=== PATIENT | female | born 1950 | race Two or more races ===

== ENCOUNTER 2024-06-20 09:33 | Emergency (ER) | payer MEDICARE, MEDICAID, SELFPAY ==
--- NOTE | 2024-06-20 | XR_ITS ---
Examinations: MRI Brain without intravenous contrast. MRA brain without intravenous contrast. MRA carotids without intravenous contrast 3-D vascular reconstructions Date and time of exam: June 20, 2024 1207 hrs. Comparison April 30, 2024 Indications: Stroke alert today, onset dysarthria, ataxia, a fascial focal neurologic deficits Technique: Multiple axial and sagittal images of the brain have been obtained MRA brain carotid images without contrast obtained, including 3-D postprocessing, vascular maximum intensity projection images Findings: Sellaturcica is not enlarged. The optic chiasm and infundibular stalk are not remarkable. Prepontine and interpeduncular cisterns are not enlarged. No localized enlargement of the medulla or christopher. Fourth ventricle and cerebellar tonsils normal in position. Subacute hemorrhage is not seen. Fourth ventricle is midline. Mass in the cerebellopontine angle region is not evident. 7th and 8th nerve complexes exhibits symmetry. Globes are symmetrical with no retro-orbital mass. Increased white matter signal prominent Diffusion-weighted images demonstrate no focus of restricted diffusion Mass-effect upon the ventricular system is not identified. MRA carotid images no significant carotid stenoses. MRA brain images no cerebral large vessel occlusions or thrombus Impression: Negative for acute hemorrhage mass effect or midline shift No acute infarct Prominent chronic microvascular white matter change No cerebral large vessel arterial occlusions or thrombus
--- NOTE | 2024-06-20 09:35 | EKG_ITS ---
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
--- NOTE | 2024-06-20 09:35 | XR_ITS ---
Examination: CTA carotids with intravenous contrast CTA brain, head with intravenous contrast. 2-D sagittal, coronal reconstructions. 3-D reconstructions. Exam date and time: June 20, 2024 0947 hrs. Indications: Stroke alert, onset aphasia today focal neurologic deficit CTDI: vol (mGy) 20.1 DLP: (mGycm) 433 Technique: Multiple CTA axial brain, head carotid images post intravenous contrast injection 75 cc, Isovue-370. 2-D sagittal, coronal reconstructions. 3-D reconstructions, 3-D post processing including vascular maximum intensity projection images. Low dose protocols were performed. One or more of the following dose reduction techniques were used; automated exposure control, adjustment of the mA and/or KV according to patient size, use of iterative reconstruction technique. Findings: No significant common carotid carotid bifurcation or internal carotid artery stenoses Dominant left vertebral artery with no critical stenoses 3-D cerebral images are limited Intracranial vertebral arteries basilar artery posterior cerebral branches fill no large vessel occlusions Juxtasellar supraclinoid internal carotid arteries demonstrate mild calcifications, no occlusions M1 segments middle cerebral arteries trifurcation vessels anterior cerebral vessels fill with no thrombus or large vessel occlusions Impression: No significant neck arterial stenoses No cerebral large vessel arterial occlusions or thrombus
--- NOTE | 2024-06-20 09:35 | XR_ITS ---
Examination: CT brain head without contrast. 2-D sagittal coronal reconstructions Date and time of exam:June 20, 2024 0940 hrs. Comparison April 29, 2024 Indications: Stroke alert, onset aphasia today focal neurologic deficits CTDI: vol (mGy):49.1 DLP: (mGycm):967 Technique: Multiple CT axial sections of the brain have been obtained, 5 mm slice thickness. Contrast has not been administered. 2-D sagittal, coronal reconstructions have been obtained Low dose protocols were performed. One or more of the following dose reduction techniques were used; automated exposure control, adjustment of the mA and/or KV according to patient size, use of iterative reconstruction technique. Findings: No significant ventricular enlargement. Intra-axial or extra-axial hemorrhage density is not seen. No mass effect or midline shift Basal cisterns are not remarkable. Fourth ventricle is midline. Cranial vault intact. Impression: Negative for acute hemorrhage, mass effect or midline shift
[2024-06-20 09:48] LABS: Basophils # (Auto) 0.1 Thou/mm3 (0.0-0.2); Basophils % (Auto) 1 % (0-2.5); Eosinophils # (Auto) 0.1 Thou/mm3 (0.0-0.5); Eosinophils % (Auto) 1 % (0-10); Hematocrit 33.9 % (36.0-46.0); Hemoglobin 11.6 g/dL (12.0-16.0); Immature Granulocytes % (Auto) 0 % (0-0); Immature Granulocytes Auto 0.01 Thou/mm3 (0.00-0.00); Lymphocytes # (Auto) 2.9 Thou/mm3 (1.0-4.8); Lymphocytes % (Auto) 46 % (10-50); Mean Corpuscular HGB Conc 34.2 g/dl (31.0-37.0); Mean Corpuscular Hemoglobin 31.8 pg (25.0-35.0); Mean Corpuscular Volume 93 fL (80-100); Monocytes # (Auto) 0.6 Thou/mm3 (0.0-0.8); Monocytes % (Auto) 10 % (0-12); Neutrophils # (Auto) 2.7 Thou/mm3 (1.8-7.7); Neutrophils % (Auto) 42 % (37-80); Nucleated Red Blood Cell % 0 /100 WBC (0); Platelet Count 236 Thou/mm3 (140-440); RDW Standard Deviation 41.4 fL (36.4-46.3); Red Blood Count 3.65 Miln/mm3 (4.00-5.20); White Blood Count 6.3 Thou/mm3 (3.6-11.0)
[2024-06-20 09:59] LABS: Partial Thromboplastin Time 29.1 Seconds (22.0-36.0); Prothrombin Time 11.1 Seconds (9.0-12.2)
--- NOTE | 2024-06-20 10:00 | PC.NURSE ---
Patient present to ED via ambulance with stroke like symptoms, unable to speak. Per family patient was sitting on couch and then noted was unable to speak appropiately prior to arrival to ED. Patient is alert, and following commands upon arrival, noted slight aphasia. Patient was take to CT.
[2024-06-20 10:04] LABS: B-Type Natriuretic Peptide 55 pg/mL (0-100)
[2024-06-20 10:05] VITALS: PULSE 72
[2024-06-20 10:14] VITALS: RESP 96; BMI 33.1
[2024-06-20 10:16] LABS: Alanine Aminotransferase 8 U/L (10-49); Albumin, Serum 4.2 gm/dL (3.4-4.8); Albumin/Globulin Ratio 1.3 (1.2-2.2); Alkaline Phosphatase 122 U/L (46-116); Anion Gap 7 (7-16); Aspartate Amino Transferase 15 U/L (0-34); BUN/Creatinine Ratio 12 Ratio (12-20); Bilirubin,Total 0.3 mg/dL (0.3-1.2); Blood Urea Nitrogen 11 mg/dL (9-23); Calcium 9.2 mg/dL (8.3-10.6); Calcium (Corrected) 9.2 mg/dL (8.5-10.1); Chloride 99 mMol/L (98-107); Creatinine (Component) 0.9 mg/dL (0.6-1.3); Globulin 3.3 gm/dL (2.3-3.5); Glucose 98 mg/dL (74-106); Osmolality,Calculated 262 (275-295); Potassium 3.8 mMol/L (3.4-5.1); Sodium 131 mMol/L (136-145); Total Protein 7.5 gm/dL (5.7-8.2); Troponin I < 0.020 ng/mL (0.0-0.045); eGFR > 60 See Note
[2024-06-20 10:18] VITALS: BP 155/91; BP 160/89; PULSE 66; RESP 13; TEMP 37.1; O2SAT 97
[2024-06-20 10:19] VITALS: BP 146/79; PULSE 71; RESP 22; O2SAT 97
--- NOTE | 2024-06-20 10:26 | PC.NURSE ---
1015 Teleneuro, Dr Alfred Tan assessing patient, per MD no interventions required.
--- NOTE | 2024-06-20 10:29 | PD.TNEURO ---
Tele Neuro Consultation Consultation Date 06/20/24 Most Recent Vital Signs Last Vital Signs Temp 98.7 F 06/20/24 10:18 Pulse 71 06/20/24 10:19 Resp 22 H 06/20/24 10:19 BP 146/79 H 06/20/24 10:19 Pulse Ox 97 06/20/24 10:19 O2 Del Method Room Air 06/20/24 10:19 Laboratory-Coagulation Panel PT 11.1 Seconds (9.0-12.2) 06/20/24 09:37 INR 1.0 (0.9-1.3) 06/20/24 09:37 APTT 29.1 Seconds (22.0-36.0) 06/20/24 09:37 Consultation Narrative [facility] Tele[facility]urology Consult [facility] Patient Name:???Rhona Canseco Date of :???1950 Identification Number:??? Date of Service:???06/20/2024 09:34:05 Diagnosis:?G45.9 - Transient cerebral ischemic attack, unspecified ?R47.9 - Transient Speech Difficulties Impression: ?Patient is a 73 yo female with pmhx HTN, seizures who presented with speech changes, AMS which are improving. No family is present at bedside at the moment. NIH currently 0. Unclear etiology at this time. Consider stroke/TIA vs seizure with post-ictal state vs alternative etiologies. R/o Metabolic or toxic derangements. CT/CTA without acute abn or obvious proximal LVO to my eye, pending radiology review. Advised ED provider to contact this provider with questions regarding imaging studies. Not a candidate for IV thrombolytic or EVT given NIH 0, resolving symptoms, no disabling features on exam, NIH<6, LVO not currently suspected. ? ?Further work-up and eval per ED. Infectious and metabolic labs recommended. Can consider MRI Brain w/o contrast if not back to baseline. Start ASA, statin for now. SBP 120-140 mmHg. PT/OT/ST evaluation. Need to confirm AED regimen and compliance. Consider increasing Keppra to 750 mg BID. Seizure precautions. Other management and dispo per ED. ? ?Discussed with patient, staff at bedside, ED provider who agree with plan of care. Call with any questions or concerns. Our recommendations are outlined below. Recommendations: ? Neuro Checks ? Bedside Swallow Eval ? DVT Prophylaxis ? IV Fluids, Normal Saline ? Head of Bed 30 Degrees ? Euglycemia and Avoid Hyperthermia (PRN Acetaminophen) ? Initiate or continue Aspirin 81 MG daily Sign Out: ? Discussed with Emergency Department Provider Advanced Imaging:CTA Head and Neck Completed. LVO:No Patient in not a candidate for ADAM Metrics: Last Known Well: 06/20/2024 09:00:00 Dispatch Time: 06/20/2024 09:57:11 Arrival Time: 06/20/2024 09:33:00 Initial Response Time: 06/20/2024 10:00:22Symptoms: Speech changes. Initial patient interaction: 06/20/2024 10:01:44 NIHSS Assessment Completed: 06/20/2024 10:04:26Patient is not a candidate for Thrombolytic. Thrombolytic Medical Decision: 06/20/2024 10:12:35Patient was not deemed candidate for Thrombolytic because of following reasons: Stroke severity too mild (non-disabling) . I personally Reviewed the CT Head and it Showed no acute abn to my eye, pending radiology review. Primary Provider Notified of Diagnostic Impression and Management Plan on: 06/20/2024 10:24:22 History of Present Illness:Patient is a 73 year old Female. Patient was brought by EMS for symptoms of Speech changes. Patient is a 73 yo female with pmhx HTN, seizures who presented with speech changes, AMS which are improving. No family is present at bedside at the moment. Patient is on Aptiom 800 mg daily and KEppra 500 mg BID. Patient admitted in April with similar presentation, CT/ MRI was non acute at that time. It was thought to be related to seizure/post-ictal state due to being out of her AEDs. ? Past Medical History: ?Hypertension ?Seizures ?There is no history of Diabetes Mellitus ?There is no history of Hyperlipidemia ?There is no history of Atrial Fibrillation ?There is no history of Coronary Artery Disease ?There is no history of Stroke Medications: No Anticoagulant use? No Antiplatelet use Reviewed EMR for current medications Allergies:? Reviewed Social History: Smoking: No Alcohol Use: No Drug Use: No Family History: There is no family history of premature cerebrovascular disease pertinent to this consultation ROS : 14 Points Review of Systems was performed and was negative except mentioned in HPI. Past Surgical History: There Is No Surgical History Contributory To Today?s Visit ? Examination: BP(161/116),?Pulse(86),?Blood Glucose(101) 1A: Level of Consciousness - Alert; keenly responsive?+ 0 1B: Ask Month and Age - Both Questions Right?+ 0 1C: Blink Eyes & Squeeze Hands - Performs Both Tasks?+ 0 2: Test Horizontal Extraocular Movements - Normal?+ 0 3: Test Visual Atkinson - No Visual Loss?+ 0 4: Test Facial Palsy (Use Grimace if Obtunded) - Normal symmetry?+ 0 5A: Test Left Arm Motor Drift - No Drift for 10 Seconds?+ 0 5B: Test Right Arm Motor Drift - No Drift for 10 Seconds?+ 0 6A: Test Left Leg Motor Drift - No Drift for 5 Seconds?+ 0 6B: Test Right Leg Motor Drift - No Drift for 5 Seconds?+ 0 7: Test Limb Ataxia (FNF/Heel-Escudero) - No Ataxia?+ 0 8: Test Sensation - Normal; No sensory loss?+ 0 9: Test Language/Aphasia - Normal; No aphasia?+ 0 10: Test Dysarthria - Normal?+ 0 11: Test Extinction/Inattention - No abnormality?+ 0 NIHSS Score:?0 NIHSS Free Text :?hypophonic speech but appropriate and no aphasia. Pre-Morbid Modified Leo Scale:0 Points = No symptoms at all Spoke with :?ED provider This consult was conducted in real time using interactive audio and video technology. Patient was informed of the technology being used for this visit and agreed to proceed. Patient located in hospital and provider located at home/office setting. Patient is being evaluated for possible acute neurologic impairment and high probability of imminent or life-threatening deterioration. I spent total of 35 minutes providing care to this patient, including time for face to face visit via telemedicine, review of medical records, imaging studies and discussion of findings with providers, the patient and/or family. Dr Alfred Tan [facility] For Inpatient follow-up with [facility] physician please call [facility] at . As we are not an outpatient service for any post hospital discharge needs please contact the hospital for assistance. If you have any questions for the [facility] physicians or need to reconsult for clinical or diagnostic changes please contact us via [facility] at .
[2024-06-20] MEDS: Aspirin 325 MG TABLET PO (12:39)
[2024-06-20 12:48] VITALS: BP 175/95; PULSE 65; RESP 19; TEMP 36.3; O2SAT 95
--- NOTE | 2024-06-20 14:24 | EDNOTE_ITS ---
Neuro Symptoms Deficit-RME/HPI General Chief Complaint: Neuro Symptoms/Deficit Stated Complaint: STROKE LIKE SYMPTOMS Time Seen by Provider: 06/20/24 09:35 Arrival date/time: 06/20/24 09:33 RME / HPI RME / HPI Narrative: DR. MUSE MAIN ED EVALUATION: 73 year old female presents to the Emergency Department [facility] with complaint of aphasia, sudden onset prior to arrival. PMHx: Seizure disorder and recent CVA 04/2024. Social Hx: No tobacco, alcohol, or substance use. Related Data Home Medications ?Medication ?Instructions ?Recorded ?Confirmed paroxetine HCl 30 mg tablet (Paxil) 30 mg PO DAILY ##0 09/23/07 05/01/24 citalopram 20 mg tablet 20 mg PO QDAY 05/01/24 05/01/24 gabapentin 400 mg capsule 400 mg PO BID 05/01/24 05/01/24 pravastatin 20 mg tablet 20 mg PO QDAY 05/01/24 05/01/24 Previous Rx's ?Medication ?Instructions ?Recorded cyclobenzaprine 5 mg tablet 10 mg (2 x 5 mg) PO TID PRN muscle 03/24/20 spasm #30 tabs levetiracetam 500 mg tablet 500 mg PO BID epilepsy #60 tabs 03/14/24 (Keppra) eslicarbazepine 800 mg tablet 800 mg PO QDAY #30 tabs 05/01/24 (Aptiom) Allergies Allergy/AdvReac Type Severity Reaction Status Date / Time No Known Allergies Allergy Verified 03/29/24 18:39 Review of Systems Review of Systems Systems Reviewed: All systems reviewed, normal except as documented Past Medical History Past Medical History NEUROLOGIC: Positive Neurological Disorders, Seizures and Epilepsy CARDIAC: Positive Hypertension; Negative Cardiac Disorders, Congestive Heart Failure or Edema RESPIRATORY: Positive Respiratory Disorders; Negative Chronic Obstructive Pulmonary Disease (COPD) or Asthma GASTROINTESTINAL: Negative Fowler's Esophagus GENITOURINARY: Negative Genitourinary Disorders or Renal Disease REPRODUCTIVE: Positive Breast Cancer (r.breast) and Previous Pregnancies MUSCULOSKELETAL: Positive Musculoskeletal Disorders and Arthritis ENDOCRINE: Negative Diabetes Mellitus Type 1 or Diabetes Mellitus Type 2 HEMATOLOGIC: Negative Blood Disorders or Sickle Cell Disease OTHER HISTORY: Positive Chicken Pox, Measles, Mumps, Cancer and Breast Cancer (r.breast); Negative Hospitalization, Autoimmune Disease, Down Syndrome, Developmental Delay, Shingles or Falls Surgical History SURGICAL: Positive Tonsillectomy and Mastectomy (r.breast) Social History SMOKING STATUS: Never smoker SUBSTANCE USE: does not use ALCOHOL: Never ED Exam Narrative Physical exam: GENERAL APPEARANCE: alert and oriented x 4, well-developed, well-nourished, no acute distress VITALS: All vitals were reviewed and the pulse ox is 96% on room air, which is normal according to my interpretation. HEENT: Normocephalic, atraumatic; pupils equal, round, reactive to light; EOMI; mucous membranes pink, moist; oropharynx clear NECK: Supple LUNGS: CTABL; no wheezes, no rales, no rhonchi HEART: Regular rate, regular rhythm; normal S1, S2; no murmurs ABDOMEN: non distended; normal BS; soft, no tenderness, no guarding, no rebound; no masses, no organomegaly, no hernia BACK: no CVA tenderness EXTREMITIES: atraumatic; no edema NEUROLOGIC: awake; alert and oriented x4; cranial nerves II-XII grossly intact; no focal sensory or motor deficits PSYCHIATRIC: appropriate mood and affect SKIN: warm, dry, normal color; no rashes Course Quality Measures none Orders Category Date Time Status Bedside Blood Glucose NOW Care 06/20/24 09:35 Completed Clothing Cutter NOW Care 06/20/24 09:35 Completed Continuous Pulse Oximetry NOW Care 06/20/24 09:35 Completed EKG (ED ONLY) *Do not use* NOW Care 06/20/24 09:35 Completed In and Out Catheter NEEDED Care 06/20/24 09:35 Completed Insert IV NOW Care 06/20/24 09:35 Completed MRI Screening NOW Care 06/20/24 10:31 Completed NIH Stroke Scale now Care 06/20/24 09:35 Completed NPO NOW Care 06/20/24 09:35 Completed Nurse Swallow Screen x1 Care 06/20/24 09:35 Completed Consult to Neurology / Tele-Neurology Routine Cons 06/20/24 09:[address] angio stroke protocol Stat Exams 06/20/24 09:[address] stroke protocol Stat Exams 06/20/24 09:35 Completed EKG (ED Only) Stat Exams 06/20/24 09:35 Draft MR stroke protocol Stat Exams 06/20/24 Completed B-Type Natriuretic Peptide Stat Lab 06/20/24 09:37 Completed CBC Stat Lab 06/20/24 09:37 Completed Comprehensive Metabolic Panel Stat Lab 06/20/24 09:37 Completed Magnesium Stat Lab 06/20/24 09:37 Completed Partial Thromboplastin Time Stat Lab 06/20/24 09:37 Completed Prothrombin Time with INR Stat Lab 06/20/24 09:37 Completed Troponin I Stat Lab 06/20/24 09:37 Completed Aspirin Med 06/20/24 11:49 Discontinued 325 mg PO X1 ONE Oxygen Delivery NOW RT 06/20/24 09:35 Completed Reevaluation(s) Reevaluation #1: Patient remains clinically stable throughout the emergency department visit. Re-assessment at the time of disposition demonstrates that the patient is in no acute distress. We reviewed all the results, analysis, and treatment plans. Patient is amenable to discharge. Strict return precautions were outlined. Patient was discharged in stable condition. Time: 13:30 Vital Signs Vital signs: Vital Signs Pulse Rate 72 06/20/24 10:05 Neuro Symptoms / Deficit MDM Narrative MDM Narrative:: IDora am scribing for and in the presence of Dr. Muse. Patient data External records reviewed:: [facility] previous records (Reviewed last admission discharge dated 05/04/24, patient admitted for the following: CVA (cerebral vascular accident).) and EMS form Clinical information provided by:: patient and EMS Social determinants that could affect healthcare access:: none Patient has the following chronic illnesses:: Seizure disorder and recent CVA 04/2024. How is presenting disease/condition affected by chronic disease/condition?: exacerbated by Evaluation data The following diagnostics were reviewed and interpreted by me:: lab results, radiology exam(s) and EKG tracing(s) (sinus rhythm, rate 66, QTc 425, no change compared to EKG 04/30/24) Lab and/or radiology exams considered but not ordered:: none Interpretation Summary: Procedure(s): CT angio stroke protocol Accession Number(s): [id number] cc: Kranthi Haas MD; Hanny Muse MD~ Examination: CTA carotids with intravenous contrast CTA brain, head with intravenous contrast. 2-D sagittal, coronal reconstructions. 3-D reconstructions. Exam date and time: June 20, 2024 0947 hrs. Indications: Stroke alert, onset aphasia today focal neurologic deficit CTDI: vol (mGy) 20.1 DLP: (mGycm) 433 Technique: Multiple CTA axial brain, head carotid images post intravenous contrast injection 75 cc, Isovue-370. 2-D sagittal, coronal reconstructions. 3-D reconstructions, 3-D post processing including vascular maximum intensity projection images. Low dose protocols were performed. One or more of the following dose reduction techniques were used; automated exposure control, adjustment of the mA and/or KV according to patient size, use of iterative reconstruction technique. Findings: No significant common carotid carotid bifurcation or internal carotid artery stenoses Dominant left vertebral artery with no critical stenoses 3-D cerebral images are limited Intracranial vertebral arteries basilar artery posterior cerebral branches fill no large vessel occlusions Juxtasellar supraclinoid internal carotid arteries demonstrate mild calcifications, no occlusions M1 segments middle cerebral arteries trifurcation vessels anterior cerebral vessels fill with no thrombus or large vessel occlusions Impression: No significant neck arterial stenoses No cerebral large vessel arterial occlusions or thrombus Dictated By: Kranthi Haas MD Procedure(s): CT stroke protocol Accession Number(s): [id number] cc: Kranthi Haas MD; Hanny Muse MD~ Examination: CT brain head without contrast. 2-D sagittal coronal reconstructions Date and time of exam:June 20, 2024 0940 hrs. Comparison April 29, 2024 Indications: Stroke alert, onset aphasia today focal neurologic deficits CTDI: vol (mGy):49.1 DLP: (mGycm):967 Technique: Multiple CT axial sections of the brain have been obtained, 5 mm slice thickness. Contrast has not been administered. 2-D sagittal, coronal reconstructions have been obtained Low dose protocols were performed. One or more of the following dose reduction techniques were used; automated exposure control, adjustment of the mA and/or KV according to patient size, use of iterative reconstruction technique. Findings: No significant ventricular enlargement. Intra-axial or extra-axial hemorrhage density is not seen. No mass effect or midline shift Basal cisterns are not remarkable. Fourth ventricle is midline. Cranial vault intact. Impression: Negative for acute hemorrhage, mass effect or midline shift Dictated By: Kranthi Haas MD ---- Procedure(s): MR stroke protocol Accession Number(s): [id number] cc: James Adamson MD; Kranthi Haas MD; Hanny Muse MD~ Examinations: MRI Brain without intravenous contrast. MRA brain without intravenous contrast. MRA carotids without intravenous contrast 3-D vascular reconstructions Date and time of exam: June 20, 2024 1207 hrs. Comparison April 30, 2024 Indications: Stroke alert today, onset dysarthria, ataxia, a fascial focal neurologic deficits Technique: Multiple axial and sagittal images of the brain have been obtained MRA brain carotid images without contrast obtained, including 3-D postprocessing, vascular maximum intensity projection images Findings: Sellaturcica is not enlarged. The optic chiasm and infundibular stalk are not remarkable. Prepontine and interpeduncular cisterns are not enlarged. No localized enlargement of the medulla or christopher. Fourth ventricle and cerebellar tonsils normal in position. Subacute hemorrhage is not seen. Fourth ventricle is midline. Mass in the cerebellopontine angle region is not evident. 7th and 8th nerve complexes exhibits symmetry. Globes are symmetrical with no retro-orbital mass. Increased white matter signal prominent Diffusion-weighted images demonstrate no focus of restricted diffusion Mass-effect upon the ventricular system is not identified. MRA carotid images no significant carotid stenoses. MRA brain images no cerebral large vessel occlusions or thrombus Impression: Negative for acute hemorrhage mass effect or midline shift No acute infarct Prominent chronic microvascular white matter change No cerebral large vessel arterial occlusions or thrombus Dictated By: Kranthi Haas MD Medications / Prescriptions Medications or Prescriptions considered but not ordered:: none Medication administrations:: Medication Administration History Discontinued Medications Aspirin (Aspirin 325 Mg Tablet) 325 mg PO X1 ONE Stop: 06/20/24 11:50 Last Admin: 06/20/24 12:39 Dose: 325 mg Documented By: AA see above Consultations Consultation(s) initiated? (list below): No Diagnosis Neuro Differential Diagnosis: subarachnoid hemorrhage, peripheral neuropathy, transient cerebral ischemia and other (Dysarthria) Most likely diagnosis given after review of the tests above:: Dysarthria Admission Indicated Admission indicated?: not indicated Admission Request Was there a request for admission?: No Disposition Plan Disposition Plan: Discharge Discharge Attestation Discharge Attestation: The patient and all family members were given an opportunity to ask questions and understood the discharge instructions. Discharge instructions specifically effects, indications for sooner follow up or return to the emergency department, and the expected course of current diagnosis. Patient condition: Stable Discharge Plan Plan Patient Disposition: HOME (Self Care) Prescriptions/Referrals Prescriptions/Med Rec: No Action paroxetine HCl [Paxil] 30 MG tablet 30 mg PO DAILY Qty: 0 Patient Comments: TAKE 2 TABLETS BY MOUTH DAILY cyclobenzaprine 5 mg tablet 10 mg PO TID PRN (Reason: muscle spasm) Qty: 30 0RF levetiracetam [Keppra] 500 MG tablet 500 mg PO BID Qty: 60 0RF Patient Comments: FOR SEIZURES gabapentin 400 mg Capsule 400 mg PO BID citalopram 20 mg Tablet 20 mg PO QDAY pravastatin 20 mg Tablet 20 mg PO QDAY Aptiom 800 mg tablet 800 mg PO QDAY Qty: 30 0RF Referrals: James Adamson MD [Primary Care Provider] - In 1 week Problem List Clinical Impression: Dysarthria Patient/Caregiver Discharge Instructions Education Materials: What Is Dysarthria Print Language: Uzbek Stand Alone Forms: Ayleen Award Info., Patient Portal Info Letter
[2024-06-20 14:36] VITALS: BP 160/83; PULSE 60; RESP 15; O2SAT 96
== END 2024-06-20 14:36 | disposition home or self-care (01) ==
PROVIDERS: Emergency Provider Emergency Medicine; PCP Family Medicine
DX: R47.1 Dysarthria and anarthria (principal); I10 Essential (primary) hypertension
CPT/HCPCS: 36415; 70450; 70496; 70498; 70544; 80053; 80307; 81001; 83735; 83880; 84484; 85025; 85610; 85730; 87086; 93005; 99285; A4649; Q9967; A9270

== ENCOUNTER 2024-09-22 01:05 | Emergency (ER) | payer MEDICARE, MEDICAID, SELFPAY ==
[2024-09-22 01:14] VITALS: PULSE 116; RESP 16; O2SAT 98
[2024-09-22 01:21] VITALS: BP 182/87; PULSE 90; RESP 17; TEMP 37.1; O2SAT 98
--- NOTE | 2024-09-22 01:51 | EKG_ITS ---
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
[2024-09-22 02:14] LABS: Basophils # (Auto) 0.1 Thou/mm3 (0.0-0.2); Basophils % (Auto) 1 % (0-2.5); Eosinophils % (Auto) 0 % (0-10); Hemoglobin 10.8 g/dL (12.0-16.0); Immature Granulocytes % (Auto) 0 % (0-0); Immature Granulocytes Auto 0.03 Thou/mm3 (0.00-0.00); Lymphocytes # (Auto) 1.7 Thou/mm3 (1.0-4.8); Lymphocytes % (Auto) 21 % (10-50); Mean Corpuscular HGB Conc 34.8 g/dl (31.0-37.0); Mean Corpuscular Volume 92 fL (80-100); Monocytes # (Auto) 0.6 Thou/mm3 (0.0-0.8); Monocytes % (Auto) 7 % (0-12); Neutrophils # (Auto) 5.8 Thou/mm3 (1.8-7.7); Neutrophils % (Auto) 71 % (37-80); Nucleated Red Blood Cell % 0 /100 WBC (0); Platelet Count 219 Thou/mm3 (140-440); RDW Standard Deviation 45.9 fL (36.4-46.3); Red Blood Count 3.38 Miln/mm3 (4.00-5.20); White Blood Count 8.1 Thou/mm3 (3.6-11.0)
[2024-09-22 02:16] LABS: Collection Type, Urine Catheter
[2024-09-22 02:26] LABS: Bacteria,Urine 2+; Bilirubin,Urine Negative (Negative); Blood,Urine Trace (Negative); Clarity,Urine Clear (Clear/Hazy); Color,Urine Yellow (Lt Yel-Yel); Glucose, Urine Negative (Negative); Ketones,Urine Negative (Negative); Leukocyte Esterase,Urine Negative (Negative); Nitrite,Urine Positive (Negative); PH,Urine 5.5 (5.0-7.0); Protein,Urine Trace (Neg - Trace); RBC,Urine 2 /hpf (0-3); Specific Gravity,Urine 1.026 (1.001-1.035); Squamous Epithelial Cell,Urine 3 /hpf (0-5); Urobilinogen,Urine Negative mg/dL (0.0-1.0); WBC,Urine 2 /hpf (0-5)
[2024-09-22 02:30] LABS: Culture Indicated,Urine Yes
[2024-09-22 02:42] LABS: Alanine Aminotransferase 9 U/L (10-49); Albumin/Globulin Ratio 1.3 (1.2-2.2); Alkaline Phosphatase 132 U/L (46-116); Anion Gap 9 (7-16); Aspartate Amino Transferase 16 U/L (0-34); BUN/Creatinine Ratio 13 Ratio (12-20); Bilirubin,Total 0.2 mg/dL (0.3-1.2); Blood Urea Nitrogen 13 mg/dL (9-23); Calcium 9.1 mg/dL (8.3-10.6); Calcium (Corrected) 9.1 mg/dL (8.5-10.1); Carbon Dioxide 25.3 mMol/L (20.0-31.0); Chloride 102 mMol/L (98-107); Glucose 127 mg/dL (74-106); Osmolality,Calculated 274 (275-295); Potassium 3.6 mMol/L (3.4-5.1); Sodium 136 mMol/L (136-145); Troponin I < 0.020 ng/mL (0.0-0.045); eGFR 59 See Note
--- NOTE | 2024-09-22 04:15 | EDNOTE_ITS ---
ED Seizures RME/HPI General Chief Complaint: Seizure Stated Complaint: SEIZURES Time Seen by Provider: 09/22/24 04:14 Arrival date/time: 09/22/24 01:05 RME / HPI RME / HPI Narrative: Dr. Cole?s Main ED Evaluation: 74yo female with a history of epilepsy, HTN BIBA from home presents to the ED for a seizure. Patient states her called 911 after she had a seizure. She states this is the first seizure she's had in 2 months. She is taking her medications. She denies any cough, fever, chills, UTI symptoms or any other associated symptoms. No known allergies. Related Data Home Medications ?Medication ?Instructions ?Recorded ?Confirmed paroxetine HCl 30 mg tablet (Paxil) 30 mg PO DAILY ##0 09/23/07 05/01/24 citalopram 20 mg tablet 20 mg PO QDAY 05/01/2405/01 gabapentin 400 mg capsule 400 mg PO BID 05/01/2405/01 pravastatin 20 mg tablet 20 mg PO QDAY 05/01/2405/01 Previous Rx's ?Medication ?Instructions ?Recorded cyclobenzaprine 5 mg tablet 10 mg (2 x 5 mg) PO TID [place] N muscle 03/24/20 spasm #30 tabs levetiracetam 500 mg tablet 500 mg PO BID epilepsy #60 tabs 03/14/24 (Keppra) eslicarbazepine 800 mg tablet 800 mg PO QDAY #30 tabs 05/01/24 (Aptiom) Allergies Allergy/AdvReac Type Severity Reaction Status Date / Time No Known Allergies Allergy Verified 03/29/24 18:39 Review of Systems Review of Systems Systems Reviewed: All systems reviewed, normal except as documented Past Medical History Past Medical History NEUROLOGIC: Positive Neurological Disorders, Seizures and Epilepsy CARDIAC: Positive Hypertension; Negative Cardiac Disorders, Congestive Heart Failure or Edema RESPIRATORY: Negative Chronic Obstructive Pulmonary Disease (COPD) or Asthma GASTROINTESTINAL: Negative Fowler's Esophagus GENITOURINARY: Negative Genitourinary Disorders or Renal Disease REPRODUCTIVE: Positive Breast Cancer and Previous Pregnancies MUSCULOSKELETAL: Positive Musculoskeletal Disorders and Arthritis ENDOCRINE: Negative Diabetes Mellitus Type 1 or Diabetes Mellitus Type 2 HEMATOLOGIC: Negative Blood Disorders or Sickle Cell Disease OTHER HISTORY: Positive Chicken Pox, Measles, Mumps, Cancer and Breast Cancer; Negative Hospitalization, Autoimmune Disease, Down Syndrome, Developmental Delay, Shingles or Falls Surgical History SURGICAL: Positive Tonsillectomy and Mastectomy Social History SMOKING STATUS: Never smoker SUBSTANCE USE: does not use ED Exam Narrative Physical exam: GENERAL APPEARANCE: alert and oriented x 4, well-developed, well-nourished, no acute distress VITALS: All vitals were reviewed and the pulse ox is 97% on room air, which is normal according to my interpretation. HEENT: Normocephalic, atraumatic; pupils equal, round, reactive to light; EOMI; mucous membranes pink, moist; oropharynx clear NECK: Supple LUNGS: CTABL; no wheezes, no rales, no rhonchi HEART: Regular rate, regular rhythm; normal S1, S2; no murmurs ABDOMEN: non distended; normal BS; soft, no tenderness, no guarding, no rebound; no masses, no organomegaly, no hernia BACK: no CVA tenderness EXTREMITIES: atraumatic; no edema NEUROLOGIC: awake; alert and oriented x4; cranial nerves II-XII grossly intact; no focal sensory or motor deficits PSYCHIATRIC: appropriate mood and affect SKIN: warm, dry, normal color; no rashes Course Quality Measures none Orders Category Date Time Status Creative Consultant STAT Care 09/22/24 04:17 Active Continuous Pulse Oximetry ONCE Care 09/22/24 04:17 Active EKG (ED ONLY) *Do not use* NOW Care 09/22/24 01:52 Completed IV [Insert IV] NOW Care 09/22/24 04:37 Active EKG (ED Only) Stat Exams 09/22/24 01:51 Draft CBC Stat Lab 09/22/24 02:07 Completed CMP [Comprehensive Metabolic Panel] Stat Lab 09/22/24 02:07 Completed Troponin I Stat Lab 09/22/24 02:07 Completed Urinalysis, C/S if Indicated Stat Lab 09/22/24 01:57 Completed Urine Culture Stat Lab 09/22/24 01:57 Received LORazepam [Ativan Inj] Med 09/22/24 04:25 Discontinued 1 mg IVP X1 ONE Sodium Chloride 0.9% 1000 ml [Ns] 1,000 ml Med 09/22/24 04:17 Discontinued IV 999 mls/hr Vital Signs Vital signs: Vital Signs Temperature 98.7 F 09/22/24 01:21 Pulse Rate 90 09/22/24 01:21 Respiratory Rate 17 09/22/24 01:21 Blood Pressure 182/87 H 09/22/24 01:21 Pulse Oximetry (%) 98 09/22/24 01:21 Oxygen Delivery Method Nasal Cannula 09/22/24 01:21 Oxygen Flow Rate 2 09/22/24 01:21 Seizure MDM Narrative MDM Narrative:: Scribe Attestation: 09/22/24 - Jahaira Villeda am scribing for and in the presence of Dr. Cole. Patient has remained stable here in the ED without any further seizures. Patient is stable to be discharged home. Patient data External records reviewed:: [facility] previous records (Per chart review, patient was admitted here on 04/29/24 for CVA.) Clinical information provided by:: patient Social determinants that could affect healthcare access:: none Patient has the following chronic illnesses:: epilepsy, HTN How is presenting disease/condition affected by chronic disease/condition?: caused by Evaluation data The following diagnostics were reviewed and interpreted by me:: lab results and EKG tracing(s) Lab and/or radiology exams considered but not ordered:: none Interpretation Summary: CBC is normal, CMP is normal, Troponin is normal, UA is positive for a UTI, according to my interpretation. EKG done at 0155, NSR, rate of 85, normal axis, no ectopy, QRS: 88, QTc: 408, no acute ischemia, according to my interpretation. Medications / Prescriptions Medications or Prescriptions considered but not ordered:: none Medication administrations:: Medication Administration History Discontinued Medications Sodium Chloride (Ns) 1,000 mls @ 999 mls/hr IV .Q1H1M ONE Stop: 09/22/24 05:17 Last Infusion: 09/22/24 05:53 Dose: Infused Documented By: Admin: 09/22/24 05:00 Dose: 999 mls/hr Documented By: CVVu Lorazepam (Lorazepam 2 Mg/Ml Vial) 1 mg IVP X1 ONE Stop: 09/22/24 04:26 Last Admin: 09/22/24 05:54 Dose: Not Given Documented By: CVL Non-Admin Reason: Change of Condition see above Consultations Consultation(s) initiated? (list below): No Diagnosis Seizure Differential Diagnosis: other (breakthrough seizure, medication noncompliance, infectious process) Most likely diagnosis given after review of the tests above:: see clinical impression below Admission Indicated Admission indicated?: not indicated Admission Request Was there a request for admission?: No Disposition Plan Disposition Plan: Discharge Discharge Attestation Discharge Attestation: The patient and all family members were given an opportunity to ask questions and understood the discharge instructions. Discharge instructions specifically effects, indications for sooner follow up or return to the emergency department, and the expected course of current diagnosis. Patient condition: Stable Discharge Plan Plan Patient Disposition: HOME (Self Care) Disposition Comment: Stable for discharge home Patient condition on transfer: Stable Prescriptions/Referrals Prescriptions/Med Rec: No Action paroxetine HCl [Paxil] 30 MG tablet 30 mg PO DAILY Qty: 0 Patient Comments: TAKE 2 TABLETS BY MOUTH DAILY cyclobenzaprine 5 mg tablet 10 mg PO TID PRN (Reason: muscle spasm) Qty: 30 0RF levetiracetam [Keppra] 500 MG tablet 500 mg PO BID Qty: 60 0RF Patient Comments: FOR SEIZURES gabapentin 400 mg Capsule 400 mg PO BID citalopram 20 mg Tablet 20 mg PO QDAY pravastatin 20 mg Tablet 20 mg PO QDAY Aptiom 800 mg tablet 800 mg PO QDAY Qty: 30 0RF Referrals: Dion Olguin MD [Physician] - In 1 week Problem List Clinical Impression: Breakthrough seizure Patient/Caregiver Discharge Instructions Discharge Activity: activity as tolerated Education Materials: ED Seizure, Recurrent (Adult) Additional Instructions: Please return to the emergency department if you have any worsening or any further medical problems and we will help you. Otherwise you should follow-up with a primary care doctor within the next several days I have given you the contact information for our neurologist on-call, Dr. Olguin. Please call her office or your primary neurologist's office and make follow-up appointment. Print Language: Setswana Stand Alone Forms: Ayleen Award Info., Patient Portal Info Letter
[2024-09-22 04:38] VITALS: PULSE 73
[2024-09-22] MEDS: SODIUM CHLORIDE 0.9% 1000 ML 1,000 ML 999 ML IV (05:00)
[2024-09-22 05:55] VITALS: BP 158/70; PULSE 79; RESP 14; O2SAT 98
[2024-09-22 06:31] VITALS: BP 166/87; PULSE 72; RESP 16; O2SAT 97
[2024-09-22 06:48] VITALS: BP 166/87; PULSE 72; RESP 16; O2SAT 97
== END 2024-09-22 07:13 | disposition home or self-care (01) ==
PROVIDERS: Emergency Provider Emergency Medicine; PCP Family Medicine
DX: G40.909 Epilepsy, unspecified, not intractable, without status epilepticus (principal); I10 Essential (primary) hypertension
CPT/HCPCS: 36415; 80053; 81001; 82550; 83605; 84484; 85025; 87077; 87086; 87186; 96360; 99284; J7030

== ENCOUNTER 2024-09-26 06:22 | Emergency (ER) | payer MEDICARE, MEDICAID, SELFPAY ==
--- NOTE | 2024-09-26 06:25 | EKG_ITS ---
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
--- NOTE | 2024-09-26 06:25 | EDNOTE_ITS ---
ED Seizures RME/HPI General Chief Complaint: Seizure Stated Complaint: SEIZURE Time Seen by Provider: 09/26/24 06:25 Arrival date/time: 09/26/24 06:22 RME / HPI RME / HPI Narrative: DR. MUSE MAIN ED EVALUATION: 74 year old female with past medical history significant for seizures presents to the Emergency Department [facility] with complaint of a seizure lasting 2 minutes while on bed, family witnessed the seizure. No fall or injury. Per EMS, patient is still postictal and last vitals were a BP of 140/88, sinus tachycardia on the monitor, and O2 saturation 98% on room air. Blood glucose was 125. Related Data Home Medications ?Medication ?Instructions ?Recorded ?Confirmed paroxetine HCl 30 mg tablet (Paxil) 30 mg PO DAILY ##0 09/23/07 05/01/24 citalopram 20 mg tablet 20 mg PO QDAY 05/01/2405/01 gabapentin 400 mg capsule 400 mg PO BID 05/01/2405/01 pravastatin 20 mg tablet 20 mg PO QDAY 05/01/2405/01 Previous Rx's ?Medication ?Instructions ?Recorded cyclobenzaprine 5 mg tablet 10 mg (2 x 5 mg) PO TID [place] N muscle 03/24/20 spasm #30 tabs levetiracetam 500 mg tablet 500 mg PO BID epilepsy #60 tabs 03/14/24 (Keppra) eslicarbazepine 800 mg tablet 800 mg PO QDAY #30 tabs 05/01/24 (Aptiom) Allergies Allergy/AdvReac Type Severity Reaction Status Date / Time No Known Allergies Allergy Verified 09/26/24 06:27 Review of Systems Review of Systems Systems Reviewed: All systems reviewed, normal except as documented Past Medical History Past Medical History NEUROLOGIC: Positive Neurological Disorders, Seizures and Epilepsy CARDIAC: Positive Hypertension; Negative Congestive Heart Failure or Edema REPRODUCTIVE: Positive Breast Cancer and Previous Pregnancies MUSCULOSKELETAL: Positive Musculoskeletal Disorders and Arthritis OTHER HISTORY: Positive Chicken Pox, Measles, Mumps, Cancer and Breast Cancer Surgical History SURGICAL: Positive Tonsillectomy and Mastectomy Social History SMOKING STATUS: Never smoker SUBSTANCE USE: does not use ED Exam Narrative Physical exam: GENERAL APPEARANCE: patient is postictal, well-developed, well-nourished, seems in no acute distress VITALS: All vitals were reviewed and the pulse ox is 98% on room air, which is normal according to my interpretation. HEENT: Normocephalic, atraumatic; pupils equal, round, reactive to light; EOMI; mucous membranes pink, moist; oropharynx clear NECK: Supple LUNGS: CTABL; no wheezes, no rales, no rhonchi HEART: Regular rate, regular rhythm; normal S1, S2; no murmurs ABDOMEN: non distended; normal BS; soft, no tenderness, no guarding, no rebound; no masses, no organomegaly, no hernia BACK: no CVA tenderness EXTREMITIES: atraumatic; no edema NEUROLOGIC: awake; alert and oriented x4; cranial nerves II-XII grossly intact; no focal sensory or motor deficits PSYCHIATRIC: appropriate mood and affect SKIN: warm, dry, normal color; no rashes Course Quality Measures none Orders Category Date Time Status Bedside COVID-19 Antigen Test NOW Care 09/26/24 06:36 Completed Bedside Influenza A&B Antigen Test NOW Care 09/26/24 06:36 Completed Furniture Assembler NOW Care 09/26/24 06:25 Completed EKG (ED ONLY) *Do not use* NOW Care 09/26/24 06:25 Completed IV [Insert IV] NOW Care 09/26/24 06:36 Completed EKG (ED Only) Stat Exams 09/26/24 06:25 Draft B-Type Natriuretic Peptide Stat Lab 09/26/24 06:45 Completed CBC Stat Lab 09/26/24 06:45 Completed Comprehensive Metabolic Panel Stat Lab 09/26/24 06:45 Completed Lipase Stat Lab 09/26/24 06:45 Completed Magnesium Stat Lab 09/26/24 06:45 Completed Troponin I Stat Lab 09/26/24 06:45 Completed UA, C/S IF [Urinalysis, C/S if Indicated] Stat Lab 09/26/24 08:00 Completed Urine Culture Stat Lab 09/26/24 08:00 Received levETIRAcetam INJ [Keppra Inj] Med 09/26/24 06:26 Discontinued 1,000 mg IVP X1 ONE Vital Signs Vital signs: Vital Signs Temperature 99.5 F 09/26/24 06:27 Pulse Rate 109 H 09/26/24 06:27 Respiratory Rate 18 09/26/24 06:27 Blood Pressure 194/100 H 09/26/24 06:27 Pulse Oximetry (%) 98 09/26/24 06:27 Oxygen Delivery Method Room Air 09/26/24 06:27 Seizure MDM Narrative MDM Narrative:: I, Dora Almaraz, am scribing for and in the presence of Dr. Muse. Patient data External records reviewed:: EMS form Clinical information provided by:: patient and EMS Social determinants that could affect healthcare access:: none Patient has the following chronic illnesses:: Seizures How is presenting disease/condition affected by chronic disease/condition?: caused by Evaluation data The following diagnostics were reviewed and interpreted by me:: lab results and EKG tracing(s) Lab and/or radiology exams considered but not ordered:: none Interpretation Summary: EKG#1: EKG at 0644 hours. Interpreted by me: sinus rhythm, rate 91, no acute ischemic changes Medications / Prescriptions Medications or Prescriptions considered but not ordered:: none Medication administrations:: Medication Administration History Discontinued Medications Levetiracetam (Levetiracetam Inj 100 Mg/Ml Vial 5ml) 1,000 mg IVP X1 ONE Stop: 09/26/24 06:27 Last Admin: 09/26/24 06:43 Dose: 1,000 mg Documented By: CVL see above Consultations Consultation(s) initiated? (list below): No Diagnosis Seizure Differential Diagnosis: intractable seizure disorder, focal seizure, generalized seizure, epileptic seizure and status epilepticus Most likely diagnosis given after review of the tests above:: Recurrent seizures Asymptomatic bacteriuria Admission Indicated Admission indicated?: not indicated Admission Request Was there a request for admission?: No Disposition Plan Disposition Plan: Discharge Discharge Attestation Discharge Attestation: The patient and all family members were given an opportunity to ask questions and understood the discharge instructions. Discharge instructions specifically effects, indications for sooner follow up or return to the emergency department, and the expected course of current diagnosis. Patient condition: Stable Discharge Plan Plan Patient Disposition: HOME (Self Care) Prescriptions/Referrals Prescriptions/Med Rec: No Action paroxetine HCl [Paxil] 30 MG tablet 30 mg PO DAILY Qty: 0 Patient Comments: TAKE 2 TABLETS BY MOUTH DAILY cyclobenzaprine 5 mg tablet 10 mg PO TID PRN (Reason: muscle spasm) Qty: 30 0RF levetiracetam [Keppra] 500 MG tablet 500 mg PO BID Qty: 60 0RF Patient Comments: FOR SEIZURES gabapentin 400 mg Capsule 400 mg PO BID citalopram 20 mg Tablet 20 mg PO QDAY pravastatin 20 mg Tablet 20 mg PO QDAY Aptiom 800 mg tablet 800 mg PO QDAY Qty: 30 0RF Problem List Clinical Impression: Recurrent seizures, Asymptomatic bacteriuria Patient/Caregiver Discharge Instructions Education Materials: ED Seizure, Recurrent (Adult) Print Language: Pashto Stand Alone Forms: Ayleen Award Info., Patient Portal Info Letter
[2024-09-26 06:27] VITALS: BP 194/100; PULSE 109; RESP 18; TEMP 37.5; O2SAT 98
[2024-09-26 06:32] VITALS: PULSE 103
[2024-09-26 06:35] VITALS: BP 188/102
[2024-09-26] MEDS: levETIRAcetam INJ 100 MG/ML VIAL 5ML 1000 MG IVP (06:43)
[2024-09-26 06:50] VITALS: BMI 30.6
[2024-09-26 06:53] VITALS: BP 173/100; PULSE 87; RESP 12; O2SAT 98
[2024-09-26 07:14] LABS: Basophils # (Auto) 0.1 Thou/mm3 (0.0-0.2); Basophils % (Auto) 1 % (0-2.5); Eosinophils # (Auto) 0.1 Thou/mm3 (0.0-0.5); Eosinophils % (Auto) 1 % (0-10); Hematocrit 34.6 % (36.0-46.0); Hemoglobin 11.8 g/dL (12.0-16.0); Immature Granulocytes % (Auto) 1 % (0-0); Immature Granulocytes Auto 0.04 Thou/mm3 (0.00-0.00); Lymphocytes # (Auto) 2.9 Thou/mm3 (1.0-4.8); Lymphocytes % (Auto) 40 % (10-50); Mean Corpuscular HGB Conc 34.1 g/dl (31.0-37.0); Mean Corpuscular Hemoglobin 31.9 pg (25.0-35.0); Mean Corpuscular Volume 94 fL (80-100); Monocytes # (Auto) 0.5 Thou/mm3 (0.0-0.8); Monocytes % (Auto) 7 % (0-12); Neutrophils # (Auto) 3.7 Thou/mm3 (1.8-7.7); Neutrophils % (Auto) 51 % (37-80); Nucleated Red Blood Cell % 0 /100 WBC (0); Platelet Count 284 Thou/mm3 (140-440); RDW Standard Deviation 44.3 fL (36.4-46.3); White Blood Count 7.2 Thou/mm3 (3.6-11.0)
[2024-09-26 07:42] LABS: B-Type Natriuretic Peptide 48 pg/mL (0-100)
[2024-09-26 07:45] LABS: Alanine Aminotransferase 8 U/L (10-49); Albumin, Serum 4.2 gm/dL (3.4-4.8); Albumin/Globulin Ratio 1.3 (1.2-2.2); Alkaline Phosphatase 115 U/L (46-116); Anion Gap 11 (7-16); Aspartate Amino Transferase 16 U/L (0-34); BUN/Creatinine Ratio 10 Ratio (12-20); Bilirubin,Total 0.3 mg/dL (0.3-1.2); Blood Urea Nitrogen 10 mg/dL (9-23); Calcium 9.4 mg/dL (8.3-10.6); Calcium (Corrected) 9.4 mg/dL (8.5-10.1); Carbon Dioxide 23.6 mMol/L (20.0-31.0); Chloride 101 mMol/L (98-107); Estimated Creatinine Clearance 53.9 mL/min (>60); Globulin 3.3 gm/dL (2.3-3.5); Glucose 120 mg/dL (74-106); Lipase 39 U/L (12-53); Osmolality,Calculated 271 (275-295); Potassium 3.2 mMol/L (3.4-5.1); Sodium 136 mMol/L (136-145); Total Protein 7.5 gm/dL (5.7-8.2); Troponin I < 0.020 ng/mL (0.0-0.045); eGFR 59 See Note
[2024-09-26 08:03] LABS: Collection Type, Urine Clean Catch
[2024-09-26 08:07] VITALS: BP 156/81; PULSE 74; RESP 16; TEMP 36.7; O2SAT 96
[2024-09-26 08:15] LABS: Bacteria,Urine 3+; Bilirubin,Urine Negative (Negative); Blood,Urine Trace (Negative); Color,Urine Yellow (Lt Yel-Yel); Glucose, Urine Negative (Negative); Ketones,Urine Negative (Negative); Leukocyte Esterase,Urine Negative (Negative); Nitrite,Urine Negative (Negative); PH,Urine 5.5 (5.0-7.0); Protein,Urine Trace (Neg - Trace); RBC,Urine 1 /hpf (0-3); Specific Gravity,Urine 1.016 (1.001-1.035); Squamous Epithelial Cell,Urine < 1 /hpf (0-5); Urobilinogen,Urine Negative mg/dL (0.0-1.0); WBC,Urine 6 /hpf (0-5)
[2024-09-26 08:17] LABS: Clarity,Urine Hazy (Clear/Hazy); Culture Indicated,Urine Yes
== END 2024-09-26 09:45 | disposition home or self-care (01) ==
PROVIDERS: Emergency Provider Emergency Medicine; PCP Family Medicine
DX: G40.909 Epilepsy, unspecified, not intractable, without status epilepticus (principal); R82.71 Bacteriuria; Z79.899 Other long term (current) drug therapy
CPT/HCPCS: 36415; 80053; 81001; 83690; 83735; 83880; 84484; 85025; 87077; 87086; 87186; 87400; 87811; 93005; 96374; 99284; J1953

== ENCOUNTER 2024-12-23 09:40 | Emergency (ER) | payer MEDICARE, MEDICAID, SELFPAY ==
[2024-12-23 09:42] VITALS: PULSE 130; RESP 20; O2SAT 99
[2024-12-23 09:47] VITALS: BP 181/79; PULSE 114; RESP 18; TEMP 36.9; O2SAT 96
[2024-12-23] MEDS: levETIRAcetam INJ 100 MG/ML VIAL 5ML 1000 MG IVP (10:15)
--- NOTE | 2024-12-23 10:15 | EDNOTE_ITS ---
ED Seizures RME/HPI General Chief Complaint: Seizure Stated Complaint: SEIZURE Time Seen by Provider: 12/23/24 09:51 Arrival date/time: 12/23/24 09:40 Limitations: no limitations RME / HPI RME / HPI Narrative: 74 year old female with history of seizures managed with Keppra presents to the ED BIBA from home for evaluation of seizure today. Per medics report, seizure was witnessed by family and no injuries or trauma reported. While in the ED, patient has no complaints. Denies fevers chills, chest pain, cough, abdominal pain, n/v/d, or urinary symptoms. Related Data Home Medications ?Medication ?Instructions ?Recorded ?Confirmed paroxetine HCl 30 mg tablet (Paxil) 30 mg PO DAILY ##0 09/23/07 05/01/24 citalopram 20 mg tablet 20 mg PO QDAY 05/01/2405/01 gabapentin 400 mg capsule 400 mg PO BID 05/01/2405/01 pravastatin 20 mg tablet 20 mg PO QDAY 05/01/2405/01 Previous Rx's ?Medication ?Instructions ?Recorded cyclobenzaprine 5 mg tablet 10 mg (2 x 5 mg) PO TID [place] N muscle 03/24/20 spasm #30 tabs levetiracetam 500 mg tablet 500 mg PO BID epilepsy #60 tabs 03/14/24 (Keppra) eslicarbazepine 800 mg tablet 800 mg PO QDAY #30 tabs 05/01/24 (Aptiom) Allergies Allergy/AdvReac Type Severity Reaction Status Date / Time No Known Allergies Allergy Verified 09/26/24 06:27 Review of Systems Review of Systems Systems Reviewed: All systems reviewed, normal except as documented Past Medical History Past Medical History NEUROLOGIC: Positive Neurological Disorders, Seizures and Epilepsy CARDIAC: Positive Hypertension REPRODUCTIVE: Positive Breast Cancer and Previous Pregnancies MUSCULOSKELETAL: Positive Musculoskeletal Disorders and Arthritis OTHER HISTORY: Positive Chicken Pox, Measles, Mumps, Cancer and Breast Cancer Surgical History SURGICAL: Positive Tonsillectomy and Mastectomy Social History SMOKING STATUS: Never smoker SUBSTANCE USE: does not use ED Exam General Limitations: Present no limitations General appearance: Present alert and in no apparent distress Head Head exam: Present atraumatic, normocephalic and normal inspection Eye Eye exam: Present normal appearance, PERRL and EOMI ENT ENT exam: Present normal exam, normal oropharynx and mucous membranes moist Neck Neck exam: Present normal inspection, full ROM and trachea midline Chest Chest inspection: Present normal inspection and symmetric chest wall rise Respiratory Respiratory exam: Present normal lung sounds bilaterally Cardiovascular Cardiovascular exam: Present regular rate, normal rhythm and normal heart sounds Abdominal Exam Abdominal exam: Present soft and normal bowel sounds Extremities Exam Extremities exam: Present normal inspection and full ROM Back Exam Back exam: Present normal inspection and full ROM Neurological Exam Neurological exam: Present alert, oriented X3 and CN II-XII intact Psychiatric Psychiatric exam: Present normal affect and normal mood Skin Skin exam: Present warm, dry, intact and normal color Course Quality Measures none Orders Category Date Time Status CBC Stat Lab 12/23/24 10:10 Completed CMP [Comprehensive Metabolic Panel] Stat Lab 12/23/24 10:10 Completed Potassium Chloride [K-Dur] Med 12/23/24 10:55 Discontinued 40 meq PO X1 ONE levETIRAcetam INJ [Keppra Inj] Med 12/23/24 10:08 Discontinued 1,000 mg IVP X1 ONE Vital Signs Vital signs: Vital Signs Temperature 98.4 F 12/23/24 09:47 Pulse Rate 114 H 12/23/24 09:47 Respiratory Rate 18 12/23/24 09:47 Blood Pressure 181/79 H 12/23/24 09:47 Pulse Oximetry (%) 96 12/23/24 09:47 Oxygen Delivery Method Room Air 12/23/24 09:47 Pulse ox is 96% on room air which is adequate. Seizure MDM Narrative MDM Narrative:: Giuliana Villeda am scribing for and in the presence of Dr. Cormier. 74 year old female with history of seizures, managed with Keppra, who presents to the ED for breakthrough seizure today. According to the medics, the seizure was witnessed by the family, and there were no injuries or trauma reported. In the ED, the patient is asymptomatic. Labs including CBC and CMP are unremarkable, with no evidence of infection, electrolyte abnormalities, or other metabolic disturbances. Patient has remained stable through ED course. Will DC home. Patient data External records reviewed:: [facility] previous records (I reviewed ED visit on 09/26/2024 ) and EMS form Clinical information provided by:: patient and EMS Social determinants that could affect healthcare access:: none Patient has the following chronic illnesses:: Seizures How is presenting disease/condition affected by chronic disease/condition?: exacerbated by Evaluation data The following diagnostics were reviewed and interpreted by me:: lab results Lab and/or radiology exams considered but not ordered:: None Interpretation Summary: As noted above Medications / Prescriptions Medications or Prescriptions considered but not ordered:: None Medication administrations:: Medication Administration History Discontinued Medications Levetiracetam (Levetiracetam Inj 100 Mg/Ml Vial 5ml) 1,000 mg IVP X1 ONE Stop: 12/23/24 10:09 Last Admin: 12/23/24 10:15 Dose: 1,000 mg Documented By: VG Potassium Chloride (Potassium Chloride 20 Meq Tabcr) 40 meq PO X1 ONE Stop: 12/23/24 10:56 See above Consultations Consultation(s) initiated? (list below): No Diagnosis Seizure Differential Diagnosis: intractable seizure disorder, generalized seizure, epileptic seizure and status epilepticus Most likely diagnosis given after review of the tests above:: Generalized seizure Admission Indicated Admission indicated?: not indicated Admission Request Was there a request for admission?: No Disposition Plan Disposition Plan: Discharge Discharge Attestation Discharge Attestation: The patient and all family members were given an opportunity to ask questions and understood the discharge instructions. Discharge instructions specifically effects, indications for sooner follow up or return to the emergency department, and the expected course of current diagnosis. Patient condition: Stable Discharge Plan Plan Patient Disposition: HOME (Self Care) Patient condition on transfer: Stable Prescriptions/Referrals Prescriptions/Med Rec: No Action paroxetine HCl [Paxil] 30 MG tablet 30 mg PO DAILY Qty: 0 Patient Comments: TAKE 2 TABLETS BY MOUTH DAILY cyclobenzaprine 5 mg tablet 10 mg PO TID PRN (Reason: muscle spasm) Qty: 30 0RF levetiracetam [Keppra] 500 MG tablet 500 mg PO BID Qty: 60 0RF Patient Comments: FOR SEIZURES gabapentin 400 mg Capsule 400 mg PO BID citalopram 20 mg Tablet 20 mg PO QDAY pravastatin 20 mg Tablet 20 mg PO QDAY Aptiom 800 mg tablet 800 mg PO QDAY Qty: 30 0RF Problem List Clinical Impression: Generalized seizure Patient/Caregiver Discharge Instructions Discharge Activity: activity as tolerated Education Materials: ED Seizure, Recurrent (Adult) Additional Instructions: Follow-up with your primary care doctor in 3 to 5 days for recheck. You can return to the emergency department sooner if symptoms worsen or if you notice any new, concerning issues. Print Language: Ukrainian Stand Alone Forms: Ayleen Award Info., Patient Portal Info Letter
[2024-12-23 10:29] LABS: Basophils # (Auto) 0.1 Thou/mm3 (0.0-0.2); Basophils % (Auto) 1 % (0-2.5); Eosinophils # (Auto) 0.0 Thou/mm3 (0.0-0.5); Eosinophils % (Auto) 1 % (0-10); Hematocrit 35.0 % (36.0-46.0); Hemoglobin 12.5 g/dL (12.0-16.0); Immature Granulocytes Auto 0.03 Thou/mm3 (0.00-0.00); Lymphocytes # (Auto) 3.5 Thou/mm3 (1.0-4.8); Lymphocytes % (Auto) 43 % (10-50); Mean Corpuscular HGB Conc 35.7 g/dl (31.0-37.0); Mean Corpuscular Hemoglobin 31.8 pg (25.0-35.0); Mean Corpuscular Volume 89 fL (80-100); Monocytes # (Auto) 0.7 Thou/mm3 (0.0-0.8); Monocytes % (Auto) 8 % (0-12); Neutrophils # (Auto) 3.8 Thou/mm3 (1.8-7.7); Neutrophils % (Auto) 47 % (37-80); Nucleated Red Blood Cell # 0.00 Thou/mm3 (0.00-0.00); Nucleated Red Blood Cell % 0 /100 WBC (0); Platelet Count 270 Thou/mm3 (140-440); RDW Standard Deviation 40.4 fL (36.4-46.3); Red Blood Count 3.93 Miln/mm3 (4.00-5.20); White Blood Count 8.1 Thou/mm3 (3.6-11.0)
[2024-12-23 10:42] LABS: Alanine Aminotransferase 11 U/L (10-49); Albumin, Serum 4.3 gm/dL (3.4-4.8); Albumin/Globulin Ratio 1.3 (1.2-2.2); Alkaline Phosphatase 105 U/L (46-116); Anion Gap 16 (7-16); Aspartate Amino Transferase 21 U/L (0-34); BUN/Creatinine Ratio 8 Ratio (12-20); Bilirubin,Total 0.4 mg/dL (0.3-1.2); Blood Urea Nitrogen 8 mg/dL (9-23); Calcium 9.2 mg/dL (8.3-10.6); Calcium (Corrected) 9.2 mg/dL (8.5-10.1); Carbon Dioxide 20.7 mMol/L (20.0-31.0); Chloride 98 mMol/L (98-107); Creatinine (Component) 1.0 mg/dL (0.6-1.3); Globulin 3.4 gm/dL (2.3-3.5); Glucose 152 mg/dL (74-106); Osmolality,Calculated 271 (275-295); Potassium 3.2 mMol/L (3.4-5.1); Sodium 135 mMol/L (136-145); Total Protein 7.7 gm/dL (5.7-8.2); eGFR 59 See Note
[2024-12-23 11:31] VITALS: BMI 30.9
[2024-12-23] MEDS: ACETAMINOPHEN 325 MG TABLET 650 MG PO (11:37)
[2024-12-23 11:50] VITALS: BP 154/93; PULSE 81; RESP 16; TEMP 36.6; O2SAT 100
== END 2024-12-23 11:50 | disposition home or self-care (01) ==
LOC: SERX 11:03
PROVIDERS: Emergency Provider Emergency Medicine; PCP Internal Medicine
DX: R56.9 Unspecified convulsions (principal)
CPT/HCPCS: 36415; 80053; 85025; 96374; 99284; J1953; A9270

== ENCOUNTER 2025-01-07 06:08 | Emergency (ER) | payer MEDICARE, MEDICAID, SELFPAY ==
[2025-01-07 06:09] VITALS: PULSE 108; RESP 18; O2SAT 97
[2025-01-07 06:12] VITALS: BMI 30.1
[2025-01-07 06:16] VITALS: BP 169/104; PULSE 105; RESP 18; TEMP 37; O2SAT 97
--- NOTE | 2025-01-07 06:30 | EDNOTE_ITS ---
ED Seizures RME/HPI General Chief Complaint: Seizure Stated Complaint: SEIZURE Time Seen by Provider: 01/07/25 06:23 Arrival date/time: 01/07/25 06:08 Limitations: no limitations RME / HPI RME / HPI Narrative: 74 year old female with history of seizures (currently on Keppra and Aption) presents to the ED BIBA from home for evaluation of seizure today. Per medics, seizure was witnessed by and described as tonic clonic, lasting ~ 1 minute. While in the ED, patient complains of headache. No other complaints reported. Related Data Home Medications ?Medication ?Instructions ?Recorded ?Confirmed paroxetine HCl 30 mg tablet (Paxil) 30 mg PO DAILY ##0 09/23/07 05/01/24 citalopram 20 mg tablet 20 mg PO QDAY 05/01/2405/01 gabapentin 400 mg capsule 400 mg PO BID 05/01/2405/01 pravastatin 20 mg tablet 20 mg PO QDAY 05/01/2405/01 Previous Rx's ?Medication ?Instructions ?Recorded cyclobenzaprine 5 mg tablet 10 mg (2 x 5 mg) PO TID PA N muscle 03/24/20 spasm #30 tabs levetiracetam 500 mg tablet 500 mg PO BID epilepsy #60 tabs 03/14/24 (Keppra) eslicarbazepine 800 mg tablet 800 mg PO QDAY #30 tabs 05/01/24 (Aptiom) magnesium oxide 300 mg PO QDAY Hypomagnesemi a 4 01/07/25 days #4 tabs potassium chloride 10 mEq 10 meq PO BID Hypokalemia 3 days 01/07/25 capsule,extended release #6 caps Allergies Allergy/AdvReac Type Severity Reaction Status Date / Time No Known Allergies Allergy Verified 09/26/24 06:27 Review of Systems Review of Systems Systems Reviewed: All systems reviewed, normal except as documented Past Medical History Past Medical History NEUROLOGIC: Positive Neurological Disorders, Seizures and Epilepsy CARDIAC: Positive Hypertension REPRODUCTIVE: Positive Breast Cancer and Previous Pregnancies MUSCULOSKELETAL: Positive Musculoskeletal Disorders and Arthritis OTHER HISTORY: Positive Chicken Pox, Measles, Mumps, Cancer and Breast Cancer Surgical History SURGICAL: Positive Tonsillectomy and Mastectomy Social History SMOKING STATUS: Never smoker SUBSTANCE USE: does not use ED Exam General Limitations: Present no limitations General appearance: Present alert and in no apparent distress Head Head exam: Present atraumatic, normocephalic and normal inspection Eye Eye exam: Present normal appearance, PERRL and EOMI ENT ENT exam: Present normal exam, normal oropharynx, mucous membranes moist and other (Patient has no teeth on the left upper side causing her smile to look sideways) Neck Neck exam: Present normal inspection, full ROM and trachea midline Chest Chest inspection: Present normal inspection and symmetric chest wall rise Respiratory Respiratory exam: Present normal lung sounds bilaterally Cardiovascular Cardiovascular exam: Present regular rate, normal rhythm and normal heart sounds Abdominal Exam Abdominal exam: Present soft and normal bowel sounds Extremities Exam Extremities exam: Present normal inspection and full ROM Back Exam Back exam: Present normal inspection and full ROM Neurological Exam Neurological exam: Present alert, oriented X3 and CN II-XII intact; Absent motor sensory deficit Psychiatric Psychiatric exam: Present normal affect and normal mood Skin Skin exam: Present warm, dry, intact and normal color Course Quality Measures none Orders Category Date Time Status Computer Tape Librarian STAT Care 01/07/25 06:31 Completed Continuous Pulse Oximetry STAT Care 01/07/25 06:31 Completed EKG (ED ONLY) *Do not use* NOW Care 01/07/25 06:14 Completed Fingerstick [Bedside Blood Glucose] NOW Care 01/07/25 06:13 Completed IV [Insert IV] NOW Care 01/07/25 06:13 Completed In and Out Catheter X1PRN Care 01/07/25 06:31 Completed NPO STAT Care 01/07/25 06:31 Completed Strict Intake and Output Routine Care 01/07/25 06:31 Ordered EKG (ED Only) Stat Exams 01/07/25 06:13 Ordered XR chest 1V portable Stat Exams 01/07/25 06:33 Completed B-Type Natriuretic Peptide Stat Lab 01/07/25 06:31 Completed CBC Stat Lab 01/07/25 06:31 Completed CK [Creatine Kinase] Stat Lab 01/07/25 06:31 Completed Comprehensive Metabolic Panel Stat Lab 01/07/25 06:31 Completed Lactate (Lactic Acid) Stat Lab 01/07/25 06:31 Completed Magnesium Stat Lab 01/07/25 06:31 Completed Phenytoin (Dilantin) Stat Lab 01/07/25 06:31 Completed Prothrombin Time with INR Stat Lab 01/07/25 06:31 Completed Troponin I Stat Lab 01/07/25 06:31 Completed LORazepam [Ativan Inj] Med 01/07/25 06:33 Discontinued 1 mg IVP X1 ONE Magnesium Oxide [Mag-Ox 400] Med 01/07/25 07:47 Discontinued 400 mg PO X1 ONE Potassium Chloride [K-Dur] Med 01/07/25 07:47 Discontinued 40 meq PO X1 ONE Ringers Lactated 1000 ml [Lactated Ringers] 1,000 ml Med 01/07/25 06:31 Discontinued IV 999 mls/hr levETIRAcetam INJ [Keppra Inj] Med 01/07/25 06:33 Discontinued 1,000 mg IVP X1 ONE Oxygen Delivery NOW RT 01/07/25 06:31 Completed Vital Signs Vital signs: Vital Signs Temperature 98.6 F 01/07/25 06:16 Pulse Rate 105 H 01/07/25 06:16 Respiratory Rate 18 01/07/25 06:16 Blood Pressure 169/104 H 01/07/25 06:16 Pulse Oximetry (%) 97 01/07/25 06:16 Oxygen Delivery Method Room Air 01/07/25 06:16 Pulse ox is 97% on room air which is adequate. Seizure MDM Narrative MDM Narrative:: Giuliana Villeda am scribing for and in the presence of Dr. Cole. 0755: Patient is awake, alert, answering questions. We reviewed all the results, analysis, and treatment plans. Patient is amenable to discharge. Strict return precautions were outlined. Patient was discharged in stable condition. Patient data External records reviewed:: [facility] previous records (Patient has multiple ED visits for seizures, last evaluated here on 12/23/2024 ) and EMS form Clinical information provided by:: patient and EMS Social determinants that could affect healthcare access:: none Patient has the following chronic illnesses:: seizures How is presenting disease/condition affected by chronic disease/condition?: exacerbated by Evaluation data The following diagnostics were reviewed and interpreted by me:: lab results and EKG tracing(s) (06:13 AM. NSR, HR 91, occasional PACs, normal axis, no signs of acute ischemia ) Lab and/or radiology exams considered but not ordered:: None Interpretation Summary: Ordering Physician: Vaughn Cole MD Date of Service: 01/07/25 Procedure(s): XR chest 1V portable Accession Number(s): [id number] cc: Kranthi Haas MD; NO PRIMARY/FAMILY,PHYSICIAN; Vaughn Cole MD~ Exam: Chest portable single view Technique: AP port upright chest single view Date: 01/07/2025 0702 hrs Indications: Chest pain seizure today Findings: Normal heart size. No aspiration pneumonia Moderate osteopenia Impression: Negative for aspiration pneumonia Dictated By: Kranthi Haas MD Signed By: <Electronically signed by Kranthi Haas MD in OV> 01/07/25 0910 Medications / Prescriptions Medications or Prescriptions considered but not ordered:: None Medication administrations:: Medication Administration History Discontinued Medications Lactated Ringer's (Lactated Ringers) 1,000 mls @ 999 mls/hr IV .Q1H1M ONE Stop: 01/07/25 07:31 Last Infusion: 01/07/25 08:28 Dose: Infused Documented By: Admin: 01/07/25 07:09 Dose: 999 mls/hr Documented By: PREM Levetiracetam (Levetiracetam Inj 100 Mg/Ml Vial 5ml) 1,000 mg IVP X1 ONE Stop: 01/07/25 06:34 Last Admin: 01/07/25 06:44 Dose: 1,000 mg Documented By: BRODIE Lorazepam (Lorazepam 2 Mg/Ml Vial) 1 mg IVP X1 ONE Stop: 01/07/25 06:34 Last Admin: 01/07/25 06:55 Dose: 1 mg Documented By: BRODIE Magnesium Oxide (Magnesium Oxide 400 Mg Tablet) 400 mg PO X1 ONE Stop: 01/07/25 07:48 Last Admin: 01/07/25 08:27 Dose: 400 mg Documented By: PREM Potassium Chloride (Potassium Chloride 20 Meq Tabcr) 40 meq PO X1 ONE Stop: 01/07/25 07:48 Last Admin: 01/07/25 08:27 Dose: 40 meq Documented By: [facility] See above Consultations Consultation(s) initiated? (list below): No Diagnosis Seizure Differential Diagnosis: intractable seizure disorder, febrile convulsion, focal seizure, generalized seizure and epileptic seizure Most likely diagnosis given after review of the tests above:: Breakthrough seizure Acute hypokalemia Hypomagnesemia Admission Indicated Admission indicated?: not indicated Admission Request Was there a request for admission?: No Disposition Plan Disposition Plan: Discharge Discharge Attestation Discharge Attestation: The patient and all family members were given an opportunity to ask questions and understood the discharge instructions. Discharge instructions specifically effects, indications for sooner follow up or return to the emergency department, and the expected course of current diagnosis. Patient condition: Stable Discharge Plan Plan Patient Disposition: HOME (Self Care) Discharge Disposition comment: Stable for discharge home and to 's care Patient condition on transfer: Stable Prescriptions/Referrals Prescriptions/Med Rec: New magnesium oxide 300 mg magnesium tablet 300 mg PO QDAY 4 Days Qty: 4 0RF potassium chloride 10 mEq capsule, extended release 10 meq PO BID 3 Days Qty: 6 0RF No Action paroxetine HCl [Paxil] 30 MG tablet 30 mg PO DAILY Qty: 0 Patient Comments: TAKE 2 TABLETS BY MOUTH DAILY cyclobenzaprine 5 mg tablet 10 mg PO TID PRN (Reason: muscle spasm) Qty: 30 0RF levetiracetam [Keppra] 500 MG tablet 500 mg PO BID Qty: 60 0RF Patient Comments: FOR SEIZURES gabapentin 400 mg Capsule 400 mg PO BID citalopram 20 mg Tablet 20 mg PO QDAY pravastatin 20 mg Tablet 20 mg PO QDAY Aptiom 800 mg tablet 800 mg PO QDAY Qty: 30 0RF Referrals: [facility] [Provider Group] - In 1 week Problem List Clinical Impression: Breakthrough seizure, Acute hypokalemia, Hypomagnesemia Patient/Caregiver Discharge Instructions Discharge Activity: activity as tolerated Education Materials: Discharge Instructions for ..., Discharge Instructions for ..., ED Seizure, Recurrent (Adult) Additional Instructions: Today you were seen in the emergency department for a breakthrough seizure. We ran multiple tests, including blood tests. The test showed that you have a somewhat low magnesium and potassium level. We gave you some potassium and magnesium here in the ER but you will need to take additional pills for the next couple days. Those prescriptions are waiting for you at the pharmacy. Please return to the emergency department if you have any worsening or any further medical problems. Otherwise you should follow-up with your primary neurologist as well as your primary care doctor or in the family [facility] within the next several days Print Language: Ethiopian Stand Alone Forms: [employer] Award Info., Patient Portal Info Letter
--- NOTE | 2025-01-07 06:33 | XR_ITS ---
Exam: Chest portable single view Technique: AP port upright chest single view Date: 01/07/2025 0702 hrs Indications: Chest pain seizure today Findings: Normal heart size. No aspiration pneumonia Moderate osteopenia Impression: Negative for aspiration pneumonia
--- NOTE | 2025-01-07 06:37 | PC.NURSE ---
Pt presents for seizure activity. States she woke up around 4am feeling ill and was watching TV. She states she thinks she hit her head during the seizure but she's not sure. Pt reports being med compliant, but can't remember what she takes. Pt complains of a headache.
[2025-01-07] MEDS: levETIRAcetam INJ 100 MG/ML VIAL 5ML 1000 MG IVP (06:44)
[2025-01-07 06:51] LABS: Lactate (Lactic Acid) 3.5 mMol/L (0.4-2.0)
[2025-01-07 06:54] LABS: Basophils # (Auto) 0.1 Thou/mm3 (0.0-0.2); Basophils % (Auto) 1 % (0-2.5); Eosinophils # (Auto) 0.1 Thou/mm3 (0.0-0.5); Eosinophils % (Auto) 1 % (0-10); Hematocrit 34.1 % (36.0-46.0); Hemoglobin 11.9 g/dL (12.0-16.0); Immature Granulocytes Auto 0.03 Thou/mm3 (0.00-0.00); Lymphocytes # (Auto) 3.6 Thou/mm3 (1.0-4.8); Lymphocytes % (Auto) 45 % (10-50); Mean Corpuscular HGB Conc 34.9 g/dl (31.0-37.0); Mean Corpuscular Hemoglobin 31.4 pg (25.0-35.0); Mean Corpuscular Volume 90 fL (80-100); Monocytes # (Auto) 0.5 Thou/mm3 (0.0-0.8); Monocytes % (Auto) 7 % (0-12); Neutrophils # (Auto) 3.7 Thou/mm3 (1.8-7.7); Neutrophils % (Auto) 47 % (37-80); Nucleated Red Blood Cell # 0.00 Thou/mm3 (0.00-0.00); Nucleated Red Blood Cell % 0 /100 WBC (0); Platelet Count 237 Thou/mm3 (140-440); RDW Standard Deviation 42.3 fL (36.4-46.3); Red Blood Count 3.79 Miln/mm3 (4.00-5.20); White Blood Count 8.0 Thou/mm3 (3.6-11.0)
[2025-01-07] MEDS: LORazepam 2 MG/ML VIAL 1 MG IVP (06:55)
--- NOTE | 2025-01-07 06:55 | PC.NURSE ---
REPORT RECEIVED AND CARE ASSUMED. PT HERE S/P SZ AT HOME. MENTAL BACK TO BASE LINE. AWAITING LABS TO BE COMPLETE. PT INFORMED ABOUT NEED FOR URINE
[2025-01-07 07:05] VITALS: BP 138/84; PULSE 81; RESP 17; TEMP 36.8; O2SAT 95
[2025-01-07] MEDS: RINGERS LACTATED 1000 ML 1,000 ML 999 ML IV (07:09)
[2025-01-07 07:12] VITALS: PULSE 80
[2025-01-07 07:36] LABS: Alanine Aminotransferase 7 U/L (10-49); Albumin, Serum 4.2 gm/dL (3.4-4.8); Albumin/Globulin Ratio 1.3 (1.2-2.2); Alkaline Phosphatase 114 U/L (46-116); Anion Gap 14 (7-16); Aspartate Amino Transferase 17 U/L (0-34); BUN/Creatinine Ratio 7 Ratio (12-20); Bilirubin,Total 0.5 mg/dL (0.3-1.2); Blood Urea Nitrogen 7 mg/dL (9-23); Calcium 9.4 mg/dL (8.3-10.6); Calcium (Corrected) 9.4 mg/dL (8.5-10.1); Carbon Dioxide 21.6 mMol/L (20.0-31.0); Chloride 101 mMol/L (98-107); Creatine Kinase 31 U/L (34-171); Creatinine (Component) 1.0 mg/dL (0.6-1.3); Estimated Creatinine Clearance 53.0 mL/min (>60); Globulin 3.2 gm/dL (2.3-3.5); Glucose 134 mg/dL (74-106); Magnesium 1.5 mg/dL (1.6-2.6); Osmolality,Calculated 273 (275-295); Phenytoin (Dilantin) < 2.0 mcg/mL; Potassium 3.0 mMol/L (3.4-5.1); Sodium 137 mMol/L (136-145); Total Protein 7.4 gm/dL (5.7-8.2); Troponin I < 0.020 ng/mL (0.0-0.045); eGFR 59 See Note
[2025-01-07 08:18] LABS: B-Type Natriuretic Peptide 88 pg/mL (0-100)
[2025-01-07] MEDS: MAGNESIUM OXIDE 400 MG TABLET PO (08:27)
[2025-01-07 08:43] LABS: INR 1.0 (0.9-1.3); Prothrombin Time 10.9 Seconds (9.0-12.2)
[2025-01-07 08:48] VITALS: BP 151/76; PULSE 72; RESP 17; O2SAT 97
--- NOTE | 2025-01-07 08:48 | PC.NURSE ---
WAITING FOR RIDE
--- NOTE | 2025-01-07 09:32 | CHAP ---
Patient expressed gratitude for visit and prayer.
[2025-01-07 09:45] LABS: Reflex Lactate? Y
--- NOTE | 2025-01-07 09:55 | PC.NURSE ---
PT NOW STATING MY HAS A DOCTOR APPOINTMENT TODAY. I DON'T KNOW WHEN HE'LL GET HERE.
[2025-01-07 10:00] VITALS: BP 161/78; PULSE 80; RESP 18; TEMP 36.7; O2SAT 97
--- NOTE | 2025-01-07 10:30 | PC.NURSE ---
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
== END 2025-01-07 10:31 | disposition home or self-care (01) ==
PROVIDERS: Emergency Provider Emergency Medicine
DX: G40.909 Epilepsy, unspecified, not intractable, without status epilepticus (principal); E83.42 Hypomagnesemia; E87.6 Hypokalemia; R07.9 Chest pain, unspecified
CPT/HCPCS: 36415; 71045; 80053; 80185; 80307; 81001; 82550; 83605; 83735; 83880; 84484; 85025; 85610; 93005; 96361; 96374; 96375; 99284; J1953; J2060; J7120; A9270

== ENCOUNTER 2025-04-17 22:59 | Emergency (ER) | payer MEDICARE, MEDICAID, SELFPAY ==
--- NOTE | 2025-04-17 23:11 | PD.EDSEIZ ---
ED Seizures RME/HPI General Chief Complaint: Seizure Stated Complaint: SEIZURE Time Seen by Provider: 04/17/25 23:20 Arrival date/time: 04/17/25 22:59 RME / HPI RME / HPI Narrative: Dr. Allen?s Main ED Evaluation: 74yo female with a history of seizure disorder BIBA from home presents to the ED for a chief complaint of a seizure. Per EMS, family on scene witnessed the patient for having a seizure, reporting it lasted for ~1 minutes. denied any recent fever, chills, cough, shortness of breath, N/V, or any other associated symptoms. EMS denies falls or injuries. Blood sugar en route was 140. Patient is compliant with her seizure medication. NKA. Related Data Home Medications ?Medication ?Instructions ?Recorded ?Confirmed paroxetine HCl 30 mg tablet (Paxil) 30 mg PO DAILY ##0 09/23/07 05/01/24 citalopram 20 mg tablet 20 mg PO QDAY 05/01/24 05/01/24 gabapentin 400 mg capsule 400 mg PO BID 05/01/24 05/01/24 pravastatin 20 mg tablet 20 mg PO QDAY 05/01/24 05/01/24 Previous Rx's ?Medication ?Instructions ?Recorded cyclobenzaprine 5 mg tablet 10 mg (2 x 5 mg) PO TID PRN muscle 03/24/20 spasm #30 tabs levetiracetam 500 mg tablet 500 mg PO BID epilepsy #60 tabs 03/14/24 (Keppra) eslicarbazepine 800 mg tablet 800 mg PO QDAY #30 tabs 05/01/24 (Aptiom) Allergies Allergy/AdvReac Type Severity Reaction Status Date / Time No Known Allergies Allergy Verified 09/26/24 06:27 Review of Systems Review of Systems Systems Reviewed: All systems reviewed, normal except as documented Past Medical History Past Medical History NEUROLOGIC: Positive Neurological Disorders, Seizures and Epilepsy CARDIAC: Positive Hypertension; Negative Cardiac Disorders, Congestive Heart Failure or Edema RESPIRATORY: Negative Chronic Obstructive Pulmonary Disease (COPD) or Asthma GASTROINTESTINAL: Negative Fowler's Esophagus GENITOURINARY: Negative Genitourinary Disorders or Renal Disease REPRODUCTIVE: Positive Breast Cancer and Previous Pregnancies MUSCULOSKELETAL: Positive Musculoskeletal Disorders and Arthritis ENDOCRINE: Negative Diabetes Mellitus Type 1 or Diabetes Mellitus Type 2 HEMATOLOGIC: Negative Blood Disorders or Sickle Cell Disease OTHER HISTORY: Positive Chicken Pox, Measles, Mumps, Cancer and Breast Cancer; Negative Hospitalization, Autoimmune Disease, Down Syndrome, Developmental Delay, Shingles or Falls Surgical History SURGICAL: Positive Tonsillectomy and Mastectomy Social History SMOKING STATUS: Never smoker SUBSTANCE USE: does not use ED Exam Narrative Physical exam: Generally patient is alert still slightly confused but no obvious distress, heart regular rate and rhythm, lungs clear to auscultation equal bilaterally, abdomen soft bowel sounds present also nontender, neurologic exam shows the patient to be alert and oriented to place and to name but not to time currently. Neurologic exam also shows no focal motor deficits. Course Quality Measures none Orders Category Date Time Status levETIRAcetam INJ [Keppra Inj] Med 04/17/25 23:21 Discontinued 1,000 mg IVP X1 ONE Vital Signs Vital signs: Vital Signs Temperature 98.0 F 04/17/25 23:45 Pulse Rate 76 04/17/25 23:45 Respiratory Rate 18 04/17/25 23:45 Blood Pressure 167/79 H 04/17/25 23:45 Pulse Oximetry (%) 96 04/17/25 23:45 Oxygen Delivery Method Room Air 04/17/25 23:45 Seizure MDM Narrative MDM Narrative:: Scribe Attestation: 04/17/25 - Jahaira Villeda am scribing for and in the presence of Dr. Allen. Patient's blood sugar was 140. Patient received Keppra 1000 mg IV. She has been compliant with her medications. Continue current medications. Follow-up with her doctor. Return to ER as needed or if condition worsens. Patient data External records reviewed:: [facility] previous records (Per chart review, patient was seen here on 01/07/25 for acute hypokalemia.) and EMS form Clinical information provided by:: EMS Social determinants that could affect healthcare access:: none Patient has the following chronic illnesses:: epilepsy How is presenting disease/condition affected by chronic disease/condition?: caused by Evaluation data The following diagnostics were reviewed and interpreted by me:: other (specify) (none) Lab and/or radiology exams considered but not ordered:: none Interpretation Summary: none Medications / Prescriptions Medications or Prescriptions considered but not ordered:: none Medication administrations:: Medication Administration History Discontinued Medications Levetiracetam (Levetiracetam Inj 100 Mg/Ml Vial 5ml) 1,000 mg IVP X1 ONE Stop: 10/29/25 23:22 Last Admin: 04/17/25 23:42 Dose: 1,000 mg Documented By: CB see above Consultations Consultation(s) initiated? (list below): No Diagnosis Seizure Differential Diagnosis: other (See MDM) Most likely diagnosis given after review of the tests above:: see clinical impression below Admission Indicated Admission indicated?: not indicated Admission Request Was there a request for admission?: No Disposition Plan Disposition Plan: Discharge Discharge Attestation Discharge Attestation: The patient and all family members were given an opportunity to ask questions and understood the discharge instructions. Discharge instructions specifically effects, indications for sooner follow up or return to the emergency department, and the expected course of current diagnosis. Patient condition: Stable Discharge Plan Plan Patient Disposition: HOME (Self Care) Prescriptions/Referrals Prescriptions/Med Rec: No Action paroxetine HCl [Paxil] 30 MG tablet 30 mg PO DAILY Qty: 0 Patient Comments: TAKE 2 TABLETS BY MOUTH DAILY cyclobenzaprine 5 mg tablet 10 mg PO TID PRN (Reason: muscle spasm) Qty: 30 0RF levetiracetam [Keppra] 500 MG tablet 500 mg PO BID Qty: 60 0RF Patient Comments: FOR SEIZURES gabapentin 400 mg Capsule 400 mg PO BID citalopram 20 mg Tablet 20 mg PO QDAY pravastatin 20 mg Tablet 20 mg PO QDAY Aptiom 800 mg tablet 800 mg PO QDAY Qty: 30 0RF Problem List Clinical Impression: Seizure Patient/Caregiver Discharge Instructions Education Materials: ED Seizure, Recurrent (Adult) Additional Instructions: You have been given Keppra through the IV here in the emergency room. Continue current medications. Follow-up with your doctor. Return to ER as needed or if condition worsens. Print Language: Kyrgyz Stand Alone Forms: [employer]yleen Award Info., Patient Portal Info Letter
[2025-04-17 23:22] VITALS: PULSE 80; RESP 14; O2SAT 99; BMI 24.2
[2025-04-17] MEDS: levETIRAcetam INJ 100 MG/ML VIAL 5ML 1000 MG IVP (23:42)
[2025-04-17 23:45] VITALS: BP 167/79; PULSE 76; RESP 18; TEMP 36.7; O2SAT 96
[2025-04-18 00:54] VITALS: BP 167/79; PULSE 66; RESP 14; TEMP 37; O2SAT 99
== END 2025-04-18 01:14 | disposition home or self-care (01) ==
LOC: SERX 04-18 01:26
PROVIDERS: Emergency Provider Emergency Medicine
DX: G40.909 Epilepsy, unspecified, not intractable, without status epilepticus (principal)
CPT/HCPCS: 96374; 99282; J1953

== ENCOUNTER 2025-04-23 22:35 | Inpatient (IN) | payer MEDICARE, MEDICAID, SELFPAY ==
--- NOTE | 2025-04-23 22:41 | PD.EDSEIZ ---
ED Seizures RME/HPI General Chief Complaint: Seizure Stated Complaint: SEIZURE Time Seen by Provider: 04/23/25 22:44 Arrival date/time: 04/23/25 22:35 RME / HPI RME / HPI Narrative: Dr. Allen?s Main ED Evaluation: 74yo female with a history of seizure disorder, DM BIBA from home presents to the ED for a seizure. Per EMS, patient's and granddaughter reported the patient had a seizure tonight that lasted ~1 minute. Family noted the patient has been having seizures every day. Patient has been compliant with her Keppra. Related Data Home Medications ?Medication ?Instructions ?Recorded ?Confirmed paroxetine HCl 30 mg tablet (Paxil) 30 mg PO DAILY ##0 09/23/07 05/01/24 citalopram 20 mg tablet 20 mg PO QDAY 05/01/24 05/01/24 gabapentin 400 mg capsule 400 mg PO BID 05/01/24 05/01/24 pravastatin 20 mg tablet 20 mg PO QDAY 05/01/24 05/01/24 Previous Rx's ?Medication ?Instructions ?Recorded cyclobenzaprine 5 mg tablet 10 mg (2 x 5 mg) PO TID PRN muscle 03/24/20 spasm #30 tabs levetiracetam 500 mg tablet 500 mg PO BID epilepsy #60 tabs 03/14/24 (Keppra) eslicarbazepine 800 mg tablet 800 mg PO QDAY #30 tabs 05/01/24 (Aptiom) Allergies Allergy/AdvReac Type Severity Reaction Status Date / Time No Known Allergies Allergy Verified 04/23/25 22:58 Review of Systems Review of Systems Systems Reviewed: All systems reviewed, normal except as documented Past Medical History Past Medical History NEUROLOGIC: Positive Neurological Disorders, Seizures and Epilepsy CARDIAC: Positive Hypertension; Negative Cardiac Disorders, Congestive Heart Failure or Edema RESPIRATORY: Negative Chronic Obstructive Pulmonary Disease (COPD) or Asthma GASTROINTESTINAL: Negative Fowler's Esophagus GENITOURINARY: Negative Genitourinary Disorders or Renal Disease REPRODUCTIVE: Positive Breast Cancer and Previous Pregnancies MUSCULOSKELETAL: Positive Musculoskeletal Disorders and Arthritis ENDOCRINE: Negative Diabetes Mellitus Type 1 or Diabetes Mellitus Type 2 HEMATOLOGIC: Negative Blood Disorders or Sickle Cell Disease OTHER HISTORY: Positive Chicken Pox, Measles, Mumps, Cancer and Breast Cancer; Negative Hospitalization, Autoimmune Disease, Down Syndrome, Developmental Delay, Shingles or Falls Surgical History SURGICAL: Positive Tonsillectomy and Mastectomy Social History SMOKING STATUS: Never smoker SUBSTANCE USE: does not use ED Exam Narrative Physical exam: Generally patient is alert and postictal not obeying commands. Heart regular rate and rhythm, lungs clear to auscultation equal bilaterally, abdomen soft bowel sounds present nondistended suprapubic abdominal tenderness without rebound, neurologic exam shows the patient to be postictal and confused moving all extremities Course Course Course Narrative: 2253: Sepsis alert initiated. Orders made at this time are congruent with ED Adult Sepsis Order List. Re-evaluation is to be completed. CXR is ordered for determining the etiology of fever. 2348: Rocephin IV infused. Quality Measures Possible source: genitourinary Blood cultures ordered: yes Antibiotic ordered: Yes Pertinent labs: 04/23/25 22:50 Lactic Acid 2.6 H mMol/L (0.4-2.0) sepsis Orders Category Date Time Status EKG (ED ONLY) *Do not use* NOW Care 04/23/25 22:55 Completed In and Out Catheter X1 Care 04/23/25 23:07 Completed EKG (ED Only) Stat Exams 04/23/25 22:55 Draft XR chest 1V portable Stat Exams 04/23/25 22:55 Completed Blood Culture (Lab) Stat Lab 04/23/25 22:50 Received CBC Stat Lab 04/23/25 22:50 Completed CMP [Comprehensive Metabolic Panel] Stat Lab 04/23/25 22:50 Completed Lactic Acid [Lactate (Lactic Acid)] Stat Lab 04/23/25 22:50 Results TSH [Thyroid Stimulating Hormone] Stat Lab 04/23/25 22:50 Completed UA [Urinalysis] Stat Lab 04/23/25 23:00 Completed Ringers Lactated 1000 ml [Lactated Ringers] 1,000 ml Med 04/24/25 00:34 Ordered IV 999 mls/hr cefTRIAXone/D5w 1gm IV premix [Rocephin/D5w 1gm IV Med 04/23/25 22:55 Discontinued premix] 1 gm in 50 ml IV X1 levETIRAcetam INJ [Keppra Inj] Med 04/23/25 22:44 Discontinued 1,500 mg IVP X1 ONE Vital Signs Vital signs: Vital Signs Temperature 101.9 F H 04/23/25 22:55 Pulse Rate 114 H 04/23/25 22:55 Respiratory Rate 18 04/23/25 22:55 Blood Pressure 176/103 H 04/23/25 22:55 Pulse Oximetry (%) 92 L 04/23/25 22:55 Oxygen Delivery Method Room Air 04/23/25 22:55 Seizure MDM Narrative MDM Narrative:: Scribe Attestation: 04/23/25 - Jahaira Villeda am scribing for and in the presence of Dr. Allen. Patient is febrile. Heart rate is 98. Those are her SIRS criteria. We did do a lactic acid on her which was 2.6. Blood culture was obtained. Urine is infected. Patient was given Rocephin 1 g IV and lactated Ringer's 1 L IV. She is not hypotensive. Case was discussed with the hospitalist and the patient will require admission to hospital for further treatment and evaluation for her sepsis with UTI and seizure disorder. Patient was also given Keppra 1500 mg IV. There was no further seizure activity here in the emergency room. The patient's mental status was improving. Patient data External records reviewed:: [facility] previous records (Per chart review, patient was seen here on 04/17/25 for a seizure.) and EMS form Clinical information provided by:: EMS Social determinants that could affect healthcare access:: none Patient has the following chronic illnesses:: seizures, DM How is presenting disease/condition affected by chronic disease/condition?: caused by Evaluation data The following diagnostics were reviewed and interpreted by me:: lab results, radiology exam(s) and EKG tracing(s) Lab and/or radiology exams considered but not ordered:: none Interpretation Summary: [facility] Report Signed Patient: JAKE IGNACIO [facility]. Record#: [id number] Birthdate: 1950 Age/Sex: 74 / F Location: [facility] Attending Dr: Ordering Physician: Pk Allen DO Date of Service: 04/23/25 Procedure(s): XR chest 1V portable Accession Number(s): [id number] cc: Kranthi Haas MD; NO PRIMARY/FAMILY,PHYSICIAN; Pk Allen DO~ EXAMINATION: AP chest single view TECHNIQUE: Portable AP semiupright chest single view Date and time: April 23, 2025, 11:37 a.m. INDICATIONS: Sepsis alert today. FINDINGS: Normal heart size No lobar pneumonia Basilar bronchitis pattern Prominent osteopenia IMPRESSION: Basilar bronchitis pattern Dictated By: Kranthi Haas MD Signed By: <Electronically signed by Kranthi Haas MD in OV> 04/23/25 6752 Medications / Prescriptions Medications or Prescriptions considered but not ordered:: none Medication administrations:: Medication Administration History Lactated Ringer's (Lactated Ringers) 1,000 mls @ 999 mls/hr IV .Q1H1M ONE Stop: 04/24/25 01:34 Discontinued Medications Ceftriaxone Sodium/Dextrose (Rocephin/D5w 1gm Iv Premix) 1 gm in 50 mls @ 100 mls/hr IV X1 ONE Stop: 04/23/25 23:24 Last Infusion: 04/23/25 23:48 Dose: Infused Documented By: Admin: 04/23/25 23:11 Dose: 100 mls/hr Documented By: HI Levetiracetam (Levetiracetam Inj 100 Mg/Ml Vial 5ml) 1,500 mg IVP X1 ONE Stop: 04/23/25 22:45 Last Admin: 04/23/25 23:11 Dose: 1,500 mg Documented By: HI see above Consultations Consultation(s) initiated? (list below): Yes Diagnosis Seizure Differential Diagnosis: other (See MDM) Most likely diagnosis given after review of the tests above:: see clinical impression below Admission Indicated Admission indicated?: indicated Admission Request Was there a request for admission?: Yes Admission Attestation Admission request attestation: Discussed case with [] from Hospitalist service regarding admission. Discussed patients ED course, exam findings, labs, and radiology results. The Hospitalist [agrees,declines] to accept the patient for admission. Disposition Plan Disposition Plan: Admit Critical Care Time Critical Care Time Critical Care Time: Yes Total Critical Care Time (min.): 35 Attestation: Excluding other billable procedures Discharge Plan Plan Patient Disposition: Admit Acute Care w/in Hospital Prescriptions/Referrals Prescriptions/Med Rec: No Action paroxetine HCl [Paxil] 30 MG tablet 30 mg PO DAILY Qty: 0 Patient Comments: TAKE 2 TABLETS BY MOUTH DAILY cyclobenzaprine 5 mg tablet 10 mg PO TID PRN (Reason: muscle spasm) Qty: 30 0RF levetiracetam [Keppra] 500 MG tablet 500 mg PO BID Qty: 60 0RF Patient Comments: FOR SEIZURES gabapentin 400 mg Capsule 400 mg PO BID citalopram 20 mg Tablet 20 mg PO QDAY pravastatin 20 mg Tablet 20 mg PO QDAY Aptiom 800 mg tablet 800 mg PO QDAY Qty: 30 0RF Referrals: No Primary/Family,Physician [Primary Care Provider] - In 1 week Problem List Clinical Impression: Sepsis, Acute UTI, Recurrent seizures Patient/Caregiver Discharge Instructions Print Language: Yi Stand Alone Forms: [employer]yle[facility] Award Info., Patient Portal Info Letter
[2025-04-23 22:55] VITALS: BP 176/103; PULSE 114; RESP 18; TEMP 38.8; O2SAT 92
--- NOTE | 2025-04-23 22:55 | EKG_ITS ---
[facility] Test Date: 2025-04-23 Pat Name: JAKE IGNACIO Department: Room: - Gender: Female [employer]: : 1950 Requested By: Pk Horta Order Number: [id number] Reading MD: Pk Horta Measurements Intervals [place] Rate: 98 P: 96 MA: 154 QRS: 4 QRSD: 92 T: 7 QT: 271 QTc: 347 Interpretive Statements SINUS RHYTHM NONSPECIFIC T-WAVE ABNORMALITY Compared to ECG 09/26/2024 06:44:00 T-wave abnormality now present /store/S0/[id number].pdf
--- NOTE | 2025-04-23 22:55 | XR_ITS ---
EXAMINATION: AP chest single view TECHNIQUE: Portable AP semiupright chest single view Date and time: April 23, 2025, 11:37 a.m. INDICATIONS: Sepsis alert today. FINDINGS: Normal heart size No lobar pneumonia Basilar bronchitis pattern Prominent osteopenia IMPRESSION: Basilar bronchitis pattern
[2025-04-23 22:58] VITALS: PULSE 144; O2SAT 96; BMI 29.3
[2025-04-23] MEDS: cefTRIAXone/D5w 1gm IV premix 1 GM/50 ML BAG IV (23:11)
[2025-04-23] MEDS: levETIRAcetam INJ 100 MG/ML VIAL 5ML 1500 MG IVP (23:11)
[2025-04-23 23:14] LABS: Lactate (Lactic Acid) 2.6 mMol/L (0.4-2.0)
[2025-04-23 23:16] LABS: Basophils # (Auto) 0.0 Thou/mm3 (0.0-0.2); Basophils % (Auto) 0 % (0-2.5); Eosinophils # (Auto) 0.0 Thou/mm3 (0.0-0.5); Eosinophils % (Auto) 0 % (0-10); Hematocrit 35.5 % (36.0-46.0); Hemoglobin 12.3 g/dL (12.0-16.0); Immature Granulocytes Auto 0.06 Thou/mm3 (0.00-0.00); Lymphocytes # (Auto) 2.1 Thou/mm3 (1.0-4.8); Lymphocytes % (Auto) 15 % (10-50); Mean Corpuscular HGB Conc 34.6 g/dl (31.0-37.0); Mean Corpuscular Hemoglobin 32.0 pg (25.0-35.0); Mean Corpuscular Volume 92 fL (80-100); Monocytes # (Auto) 1.2 Thou/mm3 (0.0-0.8); Monocytes % (Auto) 8 % (0-12); Neutrophils # (Auto) 11.1 Thou/mm3 (1.8-7.7); Neutrophils % (Auto) 77 % (37-80); Nucleated Red Blood Cell # 0.00 Thou/mm3 (0.00-0.00); Nucleated Red Blood Cell % 0 /100 WBC (0); Platelet Count 226 Thou/mm3 (140-440); RDW Standard Deviation 42.2 fL (36.4-46.3); Red Blood Count 3.84 Miln/mm3 (4.00-5.20); White Blood Count 14.4 Thou/mm3 (3.6-11.0)
[2025-04-23 23:29] LABS: Collection Type, Urine Voided
--- NOTE | 2025-04-23 23:33 | PC.NURSE ---
[facility] CALLED TO ASK ABOUT PT. UPDATE WAS GIVEN TO . CONFIRMED PT DOES NOT HAVE DIABETES AND DOES HAVE A KNOWN SEIZURE DISORDER
[2025-04-23 23:36] LABS: Bacteria,Urine 4+; Bilirubin,Urine Negative (Negative); Blood,Urine 2+ (Negative); Clarity,Urine Turbid (Clear/Hazy); Color,Urine Yellow (Lt Yel-Yel); Glucose, Urine Negative (Negative); Ketones,Urine 1+ (Negative); Leukocyte Esterase,Urine Positive (Negative); Nitrite,Urine Positive (Negative); PH,Urine 5.5 (5.0-7.0); Protein,Urine 1+ (Neg - Trace); RBC,Urine 25 /hpf (0-3); Specific Gravity,Urine 1.021 (1.001-1.035); Squamous Epithelial Cell,Urine 84 /hpf (0-5); Urobilinogen,Urine 2.0 mg/dL (0.0-1.0); WBC,Urine 277 /hpf (0-5)
[2025-04-23 23:57] LABS: Alanine Aminotransferase 17 U/L (10-49); Albumin, Serum 4.5 gm/dL (3.4-4.8); Albumin/Globulin Ratio 1.6 (1.2-2.2); Alkaline Phosphatase 74 U/L (46-116); Anion Gap 15 (7-16); Aspartate Amino Transferase 26 U/L (0-34); BUN/Creatinine Ratio 8 Ratio (12-20); Bilirubin,Total 0.8 mg/dL (0.3-1.2); Blood Urea Nitrogen 7 mg/dL (9-23); Calcium 9.5 mg/dL (8.3-10.6); Calcium (Corrected) 9.5 mg/dL (8.5-10.1); Carbon Dioxide 21.4 mMol/L (20.0-31.0); Chloride 104 mMol/L (98-107); Creatinine (Component) 0.9 mg/dL (0.6-1.3); Estimated Creatinine Clearance 56.1 mL/min (>60); Globulin 2.9 gm/dL (2.3-3.5); Glucose 159 mg/dL (74-106); Osmolality,Calculated 280 (275-295); Sodium 140 mMol/L (136-145); Thyroid Stimulating Hormone 2.70 uIU/mL (0.55-4.78); Total Protein 7.4 gm/dL (5.7-8.2); eGFR > 60 See Note
[2025-04-24] VITALS (12 sets, daily range): BP systolic 109–164; BP diastolic 60–97; PULSE 70–97; RESP 17–20; TEMP 36.3–37.7; O2SAT 92–97; BMI 29.9
[2025-04-24 00:02] LABS: Potassium 2.7 mMol/L (3.4-5.1)
--- NOTE | 2025-04-24 00:33 | PC.NURSE ---
provider was notified of critical potassium level
--- NOTE | 2025-04-24 00:40 | PD.EDADDENDU ---
Emergency Room Addendum Addendum Narrative: Patient's potassium came back at 2.7 and will be replaced through the IV here in the emergency room. Added diagnosis: Hypokalemia.
[2025-04-24] MEDS: POTASSIUM CHL 10 mEq IVPB 10 MEQ/100 ML BAG 100 MEQ IV ×5 (00:51→12:36)
[2025-04-24] MEDS: RINGERS LACTATED 1000 ML 1,000 ML 999 ML IV (00:52)
--- NOTE | 2025-04-24 01:17 | ESHP_ITS ---
<Statement entered by Gideon Carter MD - 04/24/25 07:24> I have discussed and was present for the essential components of the history, physical examination, diagnosis, and treatment plan with the resident. I agree with the patient's care as documented by the resident and amended herein by me. Gideon Carter MD FACP. Documentation for date of: 04/24/25 HPI History of Present Illness History of present illness: 74-year-old female with a history of seizure disorder BIBA from home, presents to the ED following a seizure. Due to the patient's drowsiness, the history is limited and primarily obtained from the ED physician and family. Per EMS, the patient's and granddaughter reported that the patient had a seizure tonight, which lasted approximately 1 minute. The family noted that the patient has been experiencing daily seizures. The patient has been compliant with her Keppra regimen. ED course: Initial vitals include temperature 101.9, BP 176/103, HR 114, RR 18, O2 sat 92% on room air. CBC shows elevation WBC 14.4, CMP shows potassium 2.7, creatinine 0.9, lactic acid 2.6 with repeat 1.2, magnesium 1.6, LFTs within normal range, TSH within normal range. Chest x-ray shows bibasilar bronchitis, UA collection was dirty with squamous epithelial 84 however it was turbid and positive for leuk and nitrite and WBC 277. In ED patient was loaded up on Keppra 1.5 g x 1, potassium 40 mill equivalents IV x 2, magnesium 4 g IV x 1. Amlodipine 5 mg x 1. Past medical history: As stated above. Allergies: NKDA Family history: Noncontributory. Social history: No alcohol use, no smoking, no illicit drug use. Patient admitted for sepsis 2/2 to UTI and seizures. Review of Systems Review of Systems Narrative Review of Systems: Limited at this time as patient is very drowsy Exam Vital Signs Temp Pulse Resp BP Pulse Ox O2 Del Method 99.9 F 86 17 164/92 H 94 L Room Air 04/24/25 00:35 04/24/25 00:35 04/24/25 00:35 04/24/25 00:35 04/24/25 00:35 04/24/25 00:35 Narrative Exam General: not in acute distress, drowsy, following limited commands HEENT: NC/AT, mucous membranes moist, bilateral sclera anicteric Cardiovascular: regular rate and rhythm, S1/S2 present, no murmurs appreciated Pulmonary: clear to auscultation bilaterally, no rales/rhonchi/wheezes Abdominal: soft, non-tender, non-distended, no rebound/guarding, normal bowel sounds present Musculoskeletal: normal ROM, no peripheral edema Skin: warm and dry, intact, no rashes, Neuro: limited as drowsy Results: Labs 04/24/25 05:43 04/24/25 05:43 Labs: Short CBC 04/23/25 Range/Units 22:50 WBC 14.4 H (3.6-11.0) Thou/mm3 Hgb 12.3 (12.0-16.0) g/dL Hct 35.5 L (36.0-46.0) % Plt Count 226 (140-440) Thou/mm3 BMP 04/23/25 22:50 Sodium 140 Potassium 2.7 L* Chloride 104 Carbon Dioxide 21.4 BUN 7 L Creatinine 0.9 Glucose 159 H Calcium 9.5 Liver Function 04/23/25 Range/Units 22:50 Total Bilirubin 0.8 (0.3-1.2) mg/dL AST 26 (0-34) U/L ALT 17 (10-49) U/L Alkaline Phosphatase 74 (46-116) U/L Albumin 4.5 (3.4-4.8) gm/dL Urine 04/23/25 Range/Units 23:00 Urine Color Yellow (Lt Yel-Yel) Urine Clarity Turbid A (Clear/Hazy) Urine pH 5.5 (5.0-7.0) Ur Specific [place] 1.021 (1.001-1.035) Urine Protein 1+ A (Neg - Trace) Urine Glucose (UA) Negative (Negative) Quality Measures Quality Measures sepsis Current suspected stage: sepsis Possible source: genitourinary Blood cultures ordered: yes Antibiotic ordered: Yes Advance care planning discussed with:: patient Medications Home Medications and Allergies Home Medications ?Medication ?Instructions ?Recorded ?Confirmed ?Type paroxetine HCl 30 mg tablet (Paxil) 30 mg PO DAILY ##0 09/23/07 05/01/24 History citalopram 20 mg tablet 20 mg PO QDAY 05/01/2405/01 History gabapentin 400 mg capsule 400 mg PO BID 05/01/2405/01 History pravastatin 20 mg tablet 20 mg PO QDAY 05/01/2405/01 History Allergies Allergy/AdvReac Type Severity Reaction Status Date / Time No Known Allergies Allergy Verified 04/23/25 22:58 Visit Medications Lactated Ringer's (Lactated Ringers) 1,000 mls @ 999 mls/hr IV .Q1H1M ONE Stop: 04/24/25 01:34 Last Admin: 04/24/25 00:52 Dose: 999 mls/hr Potassium Chloride (Kcl Ivpb) 10 meq in 100 mls @ 100 mls/hr IV Q1H VERONICA Stop: 04/24/25 04:40 Last Admin: 04/24/25 00:51 Dose: 100 mls/hr Discontinued Medications Ceftriaxone Sodium/Dextrose (Rocephin/D5w 1gm Iv Premix) 1 gm in 50 mls @ 100 mls/hr IV X1 ONE Stop: 04/23/25 23:24 Last Infusion: 04/23/25 23:48 Dose: Infused Levetiracetam (Levetiracetam Inj 100 Mg/Ml Vial 5ml) 1,500 mg IVP X1 ONE Stop: 04/23/25 22:45 Last Admin: 04/23/25 23:11 Dose: 1,500 mg Assessment & Plan Plan 74-year-old female with a history of seizure disorder, BIBA from home, presents to the ED following a seizure. Patient admitted for sepsis 2/2 to UTI and seizures. #Sepsis 2/2 #UTI WBC 14.4 UA collection was dirty with squamous epithelial 84 however it was turbid and positive for leuk and nitrite and WBC 277 LA 2.6, repeat 1.2 Flu, COVID neg Patient recieved LR 1L in ED Plan - Repeat UA ordered - CTX 2g IV qday ordered - Trend LA q4h #Seizures Takes Keppra 500mg BID and Aptiom 800mg qday Per family compliant with meds, but getting regular seizures Plan - Keppra level - Neuro consult, Dr. Leigh - EEG ordered - Loraz 2mg PRN - Seizure precautions - Neuro check q4h - NPO until passes swallow eval #Hypertension Inital BP 176/103 Given Amlodipine 5mg x1, BP repeat 146/74 Plan - Amlodipine 5mg PO qDay #Hypokalemia K 2.7 Plan - Repleted with 80 mEq KCl #Hypomagnesimia Mg 1.6 - Repleted with 4g Mg #?Depression/Anxiety Unsure if taking citalopram and paroxetine -Pending med recon, restart if taking Health Maintenance: Diet: NPO GI prophylaxis: none DVT prophylaxis: Lovenox 40mg SC qday Antibiotics: CTX 2g IV qday CODE STATUS: FULL Disposition: TELE Case discussed with my attending Dr. Carter, and senior resident, Dr. Sachi Roach MD PGY-1
[2025-04-24] MEDS: POTASSIUM CHL 10 mEq IVPB 10 MEQ/100 ML BAG IV ×3 (01:51→05:12)
[2025-04-24 02:10] LABS: Reflex Lactate? Y
[2025-04-24 02:25] LABS: Lactate (Lactic Acid) 1.2 mMol/L (0.4-2.0)
[2025-04-24 03:00] LABS: Magnesium 1.6 mg/dL (1.6-2.6)
[2025-04-24] MEDS: Magnesium Sulfate 4 GM Ivpb 4 GM/50 ML BAG IV (05:13)
[2025-04-24] MEDS: ONDANSETRON INJ 2 MG/ML INJ 2 ML 4 MG IVP (05:23)
[2025-04-24 06:04] LABS: Lactate (Lactic Acid) 1.1 mMol/L (0.4-2.0)
[2025-04-24 06:07] LABS: Basophils # (Auto) 0.0 Thou/mm3 (0.0-0.2); Basophils % (Auto) 0 % (0-2.5); Eosinophils # (Auto) 0.0 Thou/mm3 (0.0-0.5); Eosinophils % (Auto) 0 % (0-10); Hematocrit 32.0 % (36.0-46.0); Hemoglobin 11.3 g/dL (12.0-16.0); Immature Granulocytes Auto 0.05 Thou/mm3 (0.00-0.00); Lymphocytes # (Auto) 2.1 Thou/mm3 (1.0-4.8); Lymphocytes % (Auto) 16 % (10-50); Mean Corpuscular HGB Conc 35.3 g/dl (31.0-37.0); Mean Corpuscular Hemoglobin 32.8 pg (25.0-35.0); Mean Corpuscular Volume 93 fL (80-100); Monocytes # (Auto) 1.3 Thou/mm3 (0.0-0.8); Monocytes % (Auto) 10 % (0-12); Neutrophils # (Auto) 9.5 Thou/mm3 (1.8-7.7); Neutrophils % (Auto) 73 % (37-80); Nucleated Red Blood Cell # 0.00 Thou/mm3 (0.00-0.00); Nucleated Red Blood Cell % 0 /100 WBC (0); Platelet Count 207 Thou/mm3 (140-440); RDW Standard Deviation 42.5 fL (36.4-46.3); Red Blood Count 3.44 Miln/mm3 (4.00-5.20); White Blood Count 12.9 Thou/mm3 (3.6-11.0)
--- NOTE | 2025-04-24 06:09 | PC.NURSE ---
Per DEBO Hill to give the second scheduled potassium chloride infusion for a total of 8 10 mEq bags.
--- NOTE | 2025-04-24 06:10 | PC.NURSE ---
Dr. Roach notified via phone of patient having black and loose bowel movement on the floor. Per MD, will pass to day team.
[2025-04-24 06:42] LABS: Alanine Aminotransferase 13 U/L (10-49); Albumin, Serum 3.9 gm/dL (3.4-4.8); Albumin/Globulin Ratio 1.5 (1.2-2.2); Alkaline Phosphatase 64 U/L (46-116); Anion Gap 11 (7-16); Aspartate Amino Transferase 22 U/L (0-34); BUN/Creatinine Ratio 8 Ratio (12-20); Bilirubin,Total 0.6 mg/dL (0.3-1.2); Blood Urea Nitrogen 6 mg/dL (9-23); Calcium 9.1 mg/dL (8.3-10.6); Calcium (Corrected) 9.2 mg/dL (8.5-10.1); Carbon Dioxide 26.2 mMol/L (20.0-31.0); Chloride 105 mMol/L (98-107); Creatine Kinase 132 U/L (34-171); Creatinine (Component) 0.8 mg/dL (0.6-1.3); Estimated Creatinine Clearance 63.7 mL/min (>60); Globulin 2.6 gm/dL (2.3-3.5); Glucose 110 mg/dL (74-106); Osmolality,Calculated 281 (275-295); Potassium 3.5 mMol/L (3.4-5.1); Sodium 142 mMol/L (136-145); Total Protein 6.5 gm/dL (5.7-8.2); eGFR > 60 See Note
[2025-04-24 07:51] LABS: Glucose Estimated Average 105 mg/dL (80-131); Hemoglobin A1C 5.3 % Hgb (4.8-6.0)
[2025-04-24] MEDS: levETIRAcetam INJ 100 MG/ML VIAL 5ML 500 MG IVP (08:58)
[2025-04-24] MEDS: ENOXAPARIN SOD INJ 40 MG/0.4 ML SYRINGE SC (08:58)
[2025-04-24 10:59] LABS: Lactate (Lactic Acid) 1.0 mMol/L (0.4-2.0)
--- NOTE | 2025-04-24 10:59 | PC.SS ---
SS follow up note; Patient is on IV ABX. Seizures being monitored. Patient will discharge home when medically cleared.
--- NOTE | 2025-04-24 11:07 | XR_ITS ---
Examination: CT brain head without contrast. 2-D sagittal coronal reconstructions Date and time of exam: April 24, 2025, 1149 hours, comparison June 20, 2024 INDICATIONS: Seizures today CTDI: vol (mGy): 49.2 DLP: (mGycm): 946 Technique: Multiple CT axial sections of the brain have been obtained, 5 mm slice thickness. Contrast has not been administered. 2-D sagittal, coronal reconstructions have been obtained Low dose protocols were performed. One or more of the following dose reduction techniques were used; automated exposure control, adjustment of the mA and/or KV according to patient size, use of iterative reconstruction technique. Findings: No significant ventricular enlargement. Intra-axial or extra-axial hemorrhage density is not seen. No mass effect or midline shift Basal cisterns are not remarkable. Fourth ventricle is midline. Cranial vault intact. Impression: Negative for acute hemorrhage, mass effect or midline shift Consider elective brain MRI follow-up, pre and post contrast, seizure protocol
--- NOTE | 2025-04-24 14:11 | ESPR_ITS ---
<Statement entered by Shima Hall MD - 05/09/25 07:49> I reviewed above note and agree with findings and plans. I have also personally examined the patient with medicine team and went over assessment and plan with medical team including editing intern and resident physician. <Statement entered by Elizabeth Arechiga MD - 04/24/25 16:35> Patient was seen and examined by me personally. I have directly supervised and reviewed documentation by the team resident and agree with its findings with any exceptions or additional findings as below. Plan of care was discussed with the attending, Dr. Hall. Patient is a new overnight admit. Patient is a 74-year-old female with history of seizure disorder was BIBA from home, presents to the ED on 04/24/2025 following a seizure, patient was found to have sepsis secondary to UTI and admitted for further management. Blood cultures and urine cultures are pending. WBC slightly downtrended 14.4 to 12.9. Lactic acid is normalized. Will continue home dose levetiracetam 500 mg BID and continue ceftriaxone 2 g qday for UTI. Elizabeth Arechiga, PGY-3 Documentation for date of: 04/24/25 Subjective Subjective Interval history: Patient was admitted overnight and is a 74-year-old female with history of seizure disorder who was BIBA from home to the ED on 04/24/2025 following a seizure; she was found to have sepsis secondary to UTI and admitted for further management. Patient was examined at bedside; she appears A&Ox2 (oriented to person and place but did not respond to queries regarding current year) and in NAD. Today, she denied urinary symptoms but not much else could be gleaned as she seemed rather taciturn. Vitals/labs today significant for BP 146/72, WBC 14.4->12.9, potassium 2.7->3.5, LA 2.6->1.1. Physical exam notable for seeming suprapubic pain to palpation but was otherwise benign and unremarkable. 04/[address] was ordered and was grossly negative. 04/23 blood cultures and urine cultures are pending. It is currently suspected that patient's acute encephalopathy are 2/2 breakthrough seizures which are themselves 2/2 sepsis and UTI. In the meantime, patient will be continued on her home dose of levetiracetam 500 mg BID and continued on ceftriaxone 2 g IV qday for UTI. Neurology has been consulted and is following the case. Exam Vital Signs Temp Pulse Resp BP Pulse Ox O2 Del Method 97.3 F 74 18 128/80 93 L Room Air 04/24/25 07:48 04/24/25 12:00 04/24/25 07:48 04/24/25 08:52 04/24/25 07:48 04/24/25 07:48 Narrative Exam General: not in acute distress, following limited commands HEENT: NC/AT, mucous membranes moist, bilateral sclera anicteric Cardiovascular: regular rate and rhythm, S1/S2 present, no murmurs appreciated Pulmonary: clear to auscultation bilaterally, no rales/rhonchi/wheezes Abdominal: slight tenderness to palpation of suprapubic area, soft, non- distended, no rebound/guarding, normal bowel sounds present Musculoskeletal: normal ROM, no peripheral edema Skin: warm and dry, intact, no rashes, Neuro: A&O x 2, unable to conduct the rest of exam due to inability to follow directions Objective Labs 04/24/25 05:43 04/24/25 05:43 Labs: Laboratory Results - last 24 hr 04/23/25 04/23/25 04/24/25 22:50 23:00 02:12 WBC 14.4 H RBC 3.84 L Hgb 12.3 Hct 35.5 L MCV 92 MCH 32.0 MCHC 34.6 RDW Std Deviation 42.2 Plt Count 226 Neut % (Auto) 77 Lymph % (Auto) 15 [place] % (Auto) 8 Eos % (Auto) 0 Baso % (Auto) 0 Neut # (Auto) 11.1 H Lymph # (Auto) 2.1 [place]key # (Auto) 1.2 H Eos # (Auto) 0.0 Baso # (Auto) 0.0 Immature Gran # (Auto) 0.06 H Absolute Nucleated RBC 0.00 Immature Gran % 0 Nucleated RBC % 0 Sodium 140 Potassium 2.7 L* Chloride 104 Carbon Dioxide 21.4 Anion Gap 15 BUN 7 L Creatinine 0.9 Estim Creat Clear Calc 56.1 L eGFR > 60 BUN/Creatinine Ratio 8 L Glucose [address] Glu mg/dL Hemoglobin A1c Calculated Osmolality 280 Lactic Acid 2.6 H 1.2 Calcium 9.5 Corrected Calcium 9.5 Magnesium 1.6 Total Bilirubin 0.8 AST 26 ALT 17 Alkaline Phosphatase 74 Total Creatine Kinase Total Protein 7.4 Albumin 4.5 Globulin 2.9 Albumin/Globulin Ratio 1.6 TSH 2.70 Ur Collection Type Voided Urine Color Yellow Urine Clarity Turbid A Urine pH 5.5 Ur Specific [place] 1.021 Urine Protein 1+ A Urine Glucose (UA) Negative Urine Ketones 1+ A Urine Blood 2+ A Urine Nitrite Positive Urine Bilirubin Negative Urine Urobilinogen (Auto) 2.0 Ur Leukocyte Esterase Positive Urine RBC 25 H Urine WBC 277 H Ur Squamous Epith Cells 84 H Urine Bacteria 4+ A 04/24/25 04/24/25 05:43 10:25 WBC 12.9 H RBC 3.44 L Hgb 11.3 L Hct 32.0 L MCV 93 MCH 32.8 MCHC 35.3 RDW Std Deviation 42.5 Plt Count 207 Neut % (Auto) 73 Lymph % (Auto) 16 [place] % (Auto) 10 Eos % (Auto) 0 Baso % (Auto) 0 Neut # (Auto) 9.5 H Lymph # (Auto) 2.1 [place] # (Auto) 1.3 H Eos # (Auto) 0.0 Baso # (Auto) 0.0 Immature Gran # (Auto) 0.05 H Absolute Nucleated RBC 0.00 Immature Gran % 0 Nucleated RBC % 0 Sodium 142 Potassium 3.5 D Chloride 105 Carbon Dioxide 26.2 Anion Gap 11 BUN 6 L Creatinine 0.8 Estim Creat Clear Calc 63.7 eGFR > 60 BUN/Creatinine Ratio 8 L Glucose [address] Glu mg/dL 105 Hemoglobin A1c 5.3 Calculated Osmolality 281 Lactic Acid 1.1 1.0 Calcium 9.1 Corrected Calcium 9.2 Magnesium Total Bilirubin 0.6 AST 22 ALT 13 Alkaline Phosphatase 64 Total Creatine Kinase 132 Total Protein 6.5 Albumin 3.9 D Globulin 2.6 Albumin/Globulin Ratio 1.5 TSH Ur Collection Type Urine Color Urine Clarity Urine pH Ur Specific [place] Urine Protein Urine Glucose (UA) Urine Ketones Urine Blood Urine Nitrite Urine Bilirubin Urine Urobilinogen (Auto) Ur Leukocyte Esterase Urine RBC Urine WBC Ur Squamous Epith Cells Urine Bacteria Quality Measures Quality Measures sepsis Current suspected stage: sepsis Possible source: genitourinary Blood cultures ordered: yes Antibiotic ordered: Yes Advance care planning discussed with:: patient Assessment & Plan Assessment Current Active Medications: Generic Name Dose Route Start Last Admin Trade Name Freq PRN Reason Stop Dose Admin Acetaminophen 650 mg 04/24/25 01:38 Acetaminophen 325 Mg Tablet PO 05/24/25 01:37 Q6H PRN PAIN OR FEVER > 100.4 Amlodipine Besylate 5 mg 04/24/25 09:00 04/24/25 08:52 Amlodipine Besylate 5 Mg Tablet PO 05/24/25 08:59 5 mg QDAY VERONICA Administration Enoxaparin Sodium 40 mg 04/24/25 09:00 04/24/25 08:58 Enoxaparin Sod Inj 40 Mg/0.4 Ml Syringe SC 05/08/25 08:59 40 mg QDAY VERONICA Administration Ceftriaxone Sodium/Dextrose 2 gm in 50 mls @ 100 mls/hr 04/24/25 21:00 Rocephin/D5w 2gm IV 05/01/25 20:59 2100 VERONICA Levetiracetam 500 mg 04/24/25 09:00 04/24/25 08:58 Levetiracetam Inj 100 Mg/Ml Vial 5ml IVP 05/24/25 08:59 500 mg Q12HR VERONICA Administration Lorazepam 2 mg 04/24/25 05:36 Lorazepam 2 Mg/Ml Vial IVP Q5M PRN breakthrough seizure Ondansetron HCl 4 mg 04/24/25 01:38 04/24/25 05:23 Ondansetron Inj 2 Mg/Ml Inj 2 Ml IVP 05/24/25 01:37 4 mg Q6H PRN Administration NAUSEA OR VOMITING Protocol Plan 74-year-old female with a history of seizure disorder, BIBA from home, presents to the ED following a seizure. Patient admitted for sepsis 2/2 to UTI and seizures. #??Sepsis 2/2 #UTI #Lactic acidosis, resolved #Leukocytosis, improving 04/23 WBC 14.4 UA collection was dirty with squamous epithelial 84 however it was turbid and positive for LE and nitrite and WBC 277 LA 2.6, repeat 1.2, end organ damage possibly altered mentation Flu, COVID neg Patient received 1 L LR in the ED Dx: -04/23 UCx ordered, showed ___ -04/23 BCx ordered, showed ___ Rx: -Rocephin 2 g IV qD [04/23--] #Breakthrough seizures, compliant on Keppra, i/s/o sepsis & UTI #Hx of epilepsy on Keppra, Aptiom, and Xcopri Takes home Keppra 500mg BID and Aptiom 800 mg qD Per family compliant with meds, but getting regular seizures Dx: -04/[address] w/o contrast ordered, showed no remarkable findings -04/23 EEG ordered, showed ___ -04/23 Keppra level ordered, showed ___ -Swallow evaluation passed, on Diet Dysphagia 2 - Mechanically Altered Rx: -Per Neurology recommendations, continue home Keppra 500 mg BID and Aptiom 800 mg qD -Ativan 2 mg IV q5MIN prn for breakthrough seizures -Seizure precautions -Neuro checks q4HR -Neurology consulted, appreciate recommendations #Acute encephalopathy On 04/24 exam, patient is noted to be A&O x 2, which may be 2/2 seizure-induced post-ictal state and/or UTI with sepsis Dx: -04/[address] and EEG as mentioned in #Breakthrough seizures Rx: -Treat underlying cause (UTI and seizures) #Hypertension Inital BP 176/103 Given Amlodipine 5mg x1, BP repeat 146/74 Rx: -Amlodipine 5 mg PO qD #Electrolyte derangements #Hypokalemia #Hypomagnesemia 04/23 admission potassium 2.7, magnesium 1.6 Rx: -Monitor renal function panel -Replete electrolytes as appropriate Health Maintenance: Diet: Dysphagia 2 - Mechanical Altered GI prophylaxis: Not Indicated DVT prophylaxis: Lovenox 40mg SC qday Antibiotics: CTX 2g IV qday CODE STATUS: FULL Disposition: TELE Case discussed with my attending Dr. Hall, and senior resident, Dr. Hawk Sutherland, DO PGY-1
[2025-04-24 14:13] LABS: Lactate (Lactic Acid) 1.2 mMol/L (0.4-2.0)
--- NOTE | 2025-04-24 17:41 | PD.RESCONSUL ---
HPI Data of Consult Consult date: 04/24/25 Requesting Physician: Gideon Carter MD Admitting Provider: Gideon Carter MD Attending Provider: Dion Olguin MD Primary Care Provider: Physician No Primary/Family Consult Narrative History of present illness: Ms. Canseco is a 74-year-old female with past medical history of epilepsy on Keppra, Aptiom and Xcopri, who was brought in by ambulance for breakthrough seizure. Patient was very drowsy on presentation to the ER, however from documentation, EMS recorded that and granddaughter witnessed patient having a breakthrough seizure around 1 AM on 04/24/2025 which lasted for about 1 minute. Patient was given a loading dose Keppra in the ED, and started on maintenance Keppra with as needed lorazepam by primary team. She has been compliant with her home medications, and usually depends on her for the same. She is known to the neurology outpatient practice with Dr Olguin, and follows up regularly. 1800: On further investigation, patient's discontinued/mixed Aptiom and Xcopri bottles and will need a new prescription. He was called by MedSurg RN and requested to bring in the Aptiom which must be continued in addition to the Keppra in house. cc:: cc: Gideon Carter MD Review of Systems Review of Systems Systems Reviewed: All systems reviewed, normal except as documented Past Medical History Past Medical History NEUROLOGIC: Positive Neurological Disorders, Seizures and Epilepsy CARDIAC: Positive Hypertension; Negative Cardiac Disorders, Congestive Heart Failure or Edema RESPIRATORY: Negative Chronic Obstructive Pulmonary Disease (COPD) or Asthma GASTROINTESTINAL: Negative Fowler's Esophagus GENITOURINARY: Negative Genitourinary Disorders or Renal Disease REPRODUCTIVE: Positive Breast Cancer and Previous Pregnancies MUSCULOSKELETAL: Positive Musculoskeletal Disorders and Arthritis ENDOCRINE: Negative Diabetes Mellitus Type 1 or Diabetes Mellitus Type 2 HEMATOLOGIC: Negative Blood Disorders or Sickle Cell Disease OTHER HISTORY: Positive Chicken Pox, Measles, Mumps, Cancer and Breast Cancer; Negative Hospitalization, Autoimmune Disease, Down Syndrome, Developmental Delay, Shingles or Falls Surgical History SURGICAL: Positive Tonsillectomy and Mastectomy Social History SMOKING STATUS: Never smoker SUBSTANCE USE: does not use Exam Vital Signs Temp Pulse Resp BP Pulse Ox O2 Del Method 97.5 F 79 20 109/60 95 Room Air 04/24/25 16:50 04/24/25 16:50 04/24/25 16:50 04/24/25 16:50 04/24/25 16:50 04/24/25 16:50 Narrative Exam Constitutional Alert, oriented x3 and comfortable. Elderly HEENT Vision grossly intact, PERRLA. Patent nares. Trachea midline. Respiratory Chest normal on inspection and clear to auscultation bilaterally. Cardiovascular S1 and S2 audible, RRR. No murmurs or carotid bruit. No gross JVD. Abdominal Soft and BS + ; non tender to palpation in all quadrants. Genitourinary No bladder tenderness, no flank pain. Normal to palpation. Musculoskeletal Extremities tone within normal limits. No LE edema. Neurological CN II - XII grossly intact. UE 5/5 , LT LE 5/5, RT LE 4/5 strength, sensation intact. Delayed latency in responding, unusual for her. Rest of the exam: limited. Skin Warm, dry and intact. No apparent lesions. Psychiatric Patient has a good affect, is cooperative. Results Labs 04/24/25 05:43 04/24/25 05:43 Labs: Short CBC 04/23/25 04/24/25 Range/Units 22:50 05:43 WBC 14.4 H 12.9 H (3.6-11.0) Thou/mm3 Hgb 12.3 11.3 L (12.0-16.0) g/dL Hct 35.5 L 32.0 L (36.0-46.0) % Plt Count 226 207 (140-440) Thou/mm3 BMP 04/23/25 04/24/25 22:50 05:43 Sodium 140 142 Potassium 2.7 L* 3.5 D Chloride 104 105 Carbon Dioxide 21.4 26.2 BUN 7 L 6 L Creatinine 0.9 0.8 Glucose 159 H 110 H Calcium 9.5 9.1 Cardiac Enzymes 04/24/25 Range/Units 05:43 Total Creatine Kinase 132 (34-171) U/L Liver Function 04/23/25 04/24/25 Range/Units 22:50 05:43 Total Bilirubin 0.8 0.6 (0.3-1.2) mg/dL AST 26 22 (0-34) U/L ALT 17 13 (10-49) U/L Alkaline Phosphatase 74 64 (46-116) U/L Albumin 4.5 3.9 D (3.4-4.8) gm/dL Urine 04/23/25 Range/Units 23:00 Urine Color Yellow (Lt Yel-Yel) Urine Clarity Turbid A (Clear/Hazy) Urine pH 5.5 (5.0-7.0) Ur Specific [place] 1.021 (1.001-1.035) Urine Protein 1+ A (Neg - Trace) Urine Glucose (UA) Negative (Negative) Quality Measures Quality Measures sepsis Current suspected stage: sepsis Possible source: genitourinary Blood cultures ordered: yes Antibiotic ordered: Yes Advance care planning discussed with:: patient Medications Home Medications and Allergies Home Medications ?Medication ?Instructions ?Recorded ?Confirmed ?Type gabapentin 600 mg tablet 600 mg PO Q12H 04/24/25 04/24/25 History Allergies Allergy/AdvReac Type Severity Reaction Status Date / Time No Known Allergies Allergy Verified 04/23/25 22:58 Visit Medications Acetaminophen (Acetaminophen 325 Mg Tablet) 650 mg PO Q6H PRN PRN Reason: PAIN OR FEVER > 100.4 Stop: 05/24/25 01:37 Amlodipine Besylate (Amlodipine Besylate 5 Mg Tablet) 5 mg PO QDAY [facility] Stop: 05/24/25 08:59 Last Admin: 04/24/25 08:52 Dose: 5 mg Enoxaparin Sodium (Enoxaparin Sod Inj 40 Mg/0.4 Ml Syringe) 40 mg SC QDAY [facility] Stop: 05/08/25 08:59 Last Admin: 04/24/25 08:58 Dose: 40 mg Ceftriaxone Sodium/Dextrose (Rocephin/D5w 2gm) 2 gm in 50 mls @ 100 mls/hr IV 2100 [facility] Stop: 05/01/25 20:59 Levetiracetam (Levetiracetam Inj 100 Mg/Ml Vial 5ml) 500 mg IVP Q12HR [facility] Stop: 05/24/25 08:59 Last Admin: 04/24/25 08:58 Dose: 500 mg Lorazepam (Lorazepam 2 Mg/Ml Vial) 2 mg IVP Q5M PRN PRN Reason: breakthrough seizure Ondansetron HCl (Ondansetron Inj 2 Mg/Ml Inj 2 Ml) 4 mg IVP Q6H PRN; Protocol PRN Reason: NAUSEA OR VOMITING Stop: 05/24/25 01:37 Last Admin: 04/24/25 05:23 Dose: 4 mg Discontinued Medications Amlodipine Besylate (Amlodipine Besylate 5 Mg Tablet) 5 mg PO X1 ONE Stop: 04/24/25 01:39 Last Admin: 04/24/25 01:53 Dose: 5 mg Ceftriaxone Sodium/Dextrose (Rocephin/D5w 1gm Iv Premix) 1 gm in 50 mls @ 100 mls/hr IV X1 ONE Stop: 04/23/25 23:24 Last Infusion: 04/23/25 23:48 Dose: Infused Lactated Ringer's (Lactated Ringers) 1,000 mls @ 999 mls/hr IV .Q1H1M ONE Stop: 04/24/25 01:34 Last Infusion: 04/24/25 01:55 Dose: Infused Potassium Chloride (Kcl Ivpb) 10 meq in 100 mls @ 100 mls/hr IV Q1H VERONICA Stop: 04/24/25 04:40 Last Admin: 04/24/25 05:12 Dose: 10 mls/hr Potassium Chloride (Kcl Ivpb) 10 meq in 100 mls @ 100 mls/hr IV Q1H VERONICA Stop: 04/24/25 09:29 Last Admin: 04/24/25 12:36 Dose: 100 mls/hr Magnesium Sulfate (Magnesium Sulfate Ivpb) 4 gm in 50 mls @ 12.5 mls/hr IV X1 ONE Stop: 04/24/25 08:18 Last Admin: 04/24/25 05:13 Dose: 12.5 mls/hr Levetiracetam (Levetiracetam Inj 100 Mg/Ml Vial 5ml) 1,500 mg IVP X1 ONE Stop: 04/23/25 22:45 Last Admin: 04/23/25 23:11 Dose: 1,500 mg Assessment & Plan Plan Patient is a 74-year-old female admitted breakthrough seizures for compliance of medications Breakthrough seizure In the setting of Poor compliance Electrolyte disturbance - Home medication: Keppra 500 mg twice daily, Aptiom 800 mg daily, Xcopri 100 mg - Patient is known to neurology outpatient clinic and follows up regularly - Spoke to and advise bringing in Aptiom for treatment, new prescription sent Recommendations: - Continue Keppra, closely monitor Keppra level - Has been requested to bring in Aptiom 800 mg which must be continued in addition to Keppra in house for optimization. New prescription sent to pharmacy, expected to collect and bring to hospital. - Follow up physical therapy recommendations alfred - Avoid fluoroquinolones in the setting of breakthrough seizures. May continue ceftriaxone for treatment of UTI - Correct electrolytes for optimization, phosphorus levels ordered for AM draw Other medical problems: Sepsis secondary to UTI Primary hypertension Plan: To be managed as per primary team recommendations Thank you for the consult. Neurology will continue to follow the case with you Plan of care discussed with attending Neurologist Dr Olguin - Demond Evangelista M.D. PGY3 Disclaimer: Minor errors in bus and sys integration senior manager may be present as this note was dictated using voice recognition software. Attending Provider Attestation/Addendum I personally have seen and examined patient at the bedside and I agree with resident's findings, assessment and plan of care from. Patient presented with a breakthrough seizure secondary to noncompliance and medication intake and urinary tract infection. Resume Keppra, eslicarbazepine and Xcopri Continue with IV antibiotics and follow-up with the culture and sensitivity as it becomes available. Avoid seizure triggers and follow seizure precautions Would consider physical therapy evaluation tomorrow then decide about discharge.
[2025-04-24] MEDS: levETIRAcetam INJ 100 MG/ML VIAL 5ML 1000 MG IVP (21:18)
[2025-04-24] MEDS: cefTRIAXone/D5w 2gm 2 GM/50 ML BAG IV (21:56)
[2025-04-25] VITALS (8 sets, daily range): BP systolic 113–154; BP diastolic 66–79; PULSE 68–84; RESP 13–20; TEMP 36.1–36.2; O2SAT 94–99; BMI 28.1
[2025-04-25 06:28] LABS: Basophils # (Auto) 0.0 Thou/mm3 (0.0-0.2); Basophils % (Auto) 0 % (0-2.5); Eosinophils # (Auto) 0.1 Thou/mm3 (0.0-0.5); Eosinophils % (Auto) 1 % (0-10); Hematocrit 34.0 % (36.0-46.0); Hemoglobin 11.7 g/dL (12.0-16.0); Immature Granulocytes Auto 0.03 Thou/mm3 (0.00-0.00); Lymphocytes # (Auto) 2.3 Thou/mm3 (1.0-4.8); Lymphocytes % (Auto) 24 % (10-50); Mean Corpuscular HGB Conc 34.4 g/dl (31.0-37.0); Mean Corpuscular Hemoglobin 32.6 pg (25.0-35.0); Mean Corpuscular Volume 95 fL (80-100); Monocytes # (Auto) 0.9 Thou/mm3 (0.0-0.8); Monocytes % (Auto) 9 % (0-12); Neutrophils # (Auto) 6.4 Thou/mm3 (1.8-7.7); Neutrophils % (Auto) 66 % (37-80); Nucleated Red Blood Cell # 0.00 Thou/mm3 (0.00-0.00); Nucleated Red Blood Cell % 0 /100 WBC (0); Platelet Count 217 Thou/mm3 (140-440); RDW Standard Deviation 43.9 fL (36.4-46.3); Red Blood Count 3.59 Miln/mm3 (4.00-5.20); White Blood Count 9.7 Thou/mm3 (3.6-11.0)
[2025-04-25 06:52] LABS: Alanine Aminotransferase 14 U/L (10-49); Albumin, Serum 3.9 gm/dL (3.4-4.8); Albumin/Globulin Ratio 1.3 (1.2-2.2); Alkaline Phosphatase 68 U/L (46-116); Anion Gap 8 (7-16); Aspartate Amino Transferase 14 U/L (0-34); BUN/Creatinine Ratio 9 Ratio (12-20); Bilirubin,Total 0.4 mg/dL (0.3-1.2); Blood Urea Nitrogen 7 mg/dL (9-23); Calcium 9.0 mg/dL (8.3-10.6); Calcium (Corrected) 9.1 mg/dL (8.5-10.1); Carbon Dioxide 27.7 mMol/L (20.0-31.0); Chloride 105 mMol/L (98-107); Creatinine (Component) 0.8 mg/dL (0.6-1.3); Estimated Creatinine Clearance 61.9 mL/min (>60); Globulin 3.0 gm/dL (2.3-3.5); Glucose 87 mg/dL (74-106); Osmolality,Calculated 278 (275-295); Phosphorous 3.4 mg/dL (2.4-5.1); Potassium 3.4 mMol/L (3.4-5.1); Sodium 141 mMol/L (136-145); Total Protein 6.9 gm/dL (5.7-8.2); eGFR > 60 See Note
[2025-04-25] MEDS: levETIRAcetam INJ 100 MG/ML VIAL 5ML 500 MG IVP ×2 (08:17→20:53)
[2025-04-25] MEDS: ENOXAPARIN SOD INJ 40 MG/0.4 ML SYRINGE SC (08:17)
[2025-04-25] MEDS: POTASSIUM CHLORIDE 10% 20 MEQ/15 ML UDC 40 MEQ PO (08:47)
[2025-04-25] MEDS: cefTRIAXone/D5w 1gm IV premix 1 GM/50 ML BAG IV (11:44)
--- NOTE | 2025-04-25 14:15 | ESPR_ITS ---
Documentation for date of: 04/25/25 Subjective Subjective Interval history: Patient was seen in [facility], no witnessed seizures reported after admission. Her mental status is improving, close to baseline. Exam Vital Signs Temp Pulse Resp BP Pulse Ox O2 Del Method 97.0 F 76 20 113/66 95 Room Air 04/25/25 12:00 04/25/25 12:00 04/25/25 12:00 04/25/25 12:00 04/25/25 12:00 04/25/25 12:00 Narrative Exam Constitutional Alert, oriented x3 and comfortable. HEENT Vision grossly intact, PERRLA. Patent nares. Trachea midline. Respiratory Chest normal on inspection and clear to auscultation bilaterally. Cardiovascular S1 and S2 audible, RRR. No murmurs or carotid bruit. No gross JVD. Abdominal Soft and BS + ; non tender to palpation in all quadrants. Genitourinary No bladder tenderness, no flank pain. Normal to palpation. Musculoskeletal Extremities tone within normal limits. No LE edema. Neurological CN II - XII grossly intact. UE 5/5 , LT LE 5/5, RT LE 4/5 strength, sensation intact. Delayed latency in responding, unusual for her. Rest of the exam: limited. Skin Warm, dry and intact. No apparent lesions. Psychiatric Patient has a good affect, is cooperative. Objective Labs 04/26/25 05:10 04/26/25 05:10 Labs: Laboratory Results - last 24 hr 04/24/25 04/25/25 13:50 05:03 WBC 9.7 RBC 3.59 L Hgb 11.7 L Hct 34.0 L MCV 95 MCH 32.6 MCHC 34.4 RDW Std Deviation 43.9 Plt Count 217 Neut % (Auto) 66 Lymph % (Auto) 24 [place] % (Auto) 9 Eos % (Auto) 1 Baso % (Auto) 0 Neut # (Auto) 6.4 Lymph # (Auto) 2.3 Gordon # (Auto) 0.9 H Eos # (Auto) 0.1 Baso # (Auto) 0.0 Immature Gran # (Auto) 0.03 H Absolute Nucleated RBC 0.00 Immature Gran % 0 Nucleated RBC % 0 Sodium 141 Potassium 3.4 Chloride 105 Carbon Dioxide 27.7 Anion Gap 8 BUN 7 L Creatinine 0.8 Estim Creat Clear Calc 61.9 eGFR > 60 BUN/Creatinine Ratio 9 L Glucose 87 Calculated Osmolality 278 Lactic Acid 1.2 Calcium 9.0 Corrected Calcium 9.1 Phosphorus 3.4 Total Bilirubin 0.4 AST 14 ALT 14 Alkaline Phosphatase 68 Total Protein 6.9 Albumin 3.9 Globulin 3.0 Albumin/Globulin Ratio 1.3 Quality Measures Quality Measures sepsis Current suspected stage: sepsis Possible source: genitourinary Blood cultures ordered: yes Antibiotic ordered: Yes Advance care planning discussed with:: patient and spouse Assessment & Plan Assessment Current Active Medications: Generic Name Dose Route Start Last Admin Trade Name Freq PRN Reason Stop Dose Admin Acetaminophen 650 mg 04/24/25 01:38 Acetaminophen 325 Mg Tablet PO 05/24/25 01:37 Q6H PRN PAIN OR FEVER > 100.4 Amlodipine Besylate 5 mg 04/24/25 09:00 04/25/25 08:17 Amlodipine Besylate 5 Mg Tablet PO 05/24/25 08:59 5 mg QDAY VERONICA Administration Enoxaparin Sodium 40 mg 04/24/25 09:00 04/25/25 08:17 Enoxaparin Sod Inj 40 Mg/0.4 Ml Syringe SC 05/08/25 08:59 40 mg QDAY VERONICA Administration Ceftriaxone Sodium/Dextrose 1 gm in 50 mls @ 100 mls/hr 04/25/25 11:01 04/25/25 11:44 Rocephin/D5w 1gm Iv Premix IV 05/02/25 11:00 100 mls/hr QDAY VERONICA Administration Levetiracetam 500 mg 04/24/25 09:00 04/25/25 08:17 Levetiracetam Inj 100 Mg/Ml Vial 5ml IVP 05/24/25 08:59 500 mg Q12HR VERONICA Administration Lorazepam 2 mg 04/24/25 05:36 Lorazepam 2 Mg/Ml Vial IVP Q5M PRN breakthrough seizure Non-Formulary Medication 800 mg 04/26/25 09:00 Aptiom PO 05/26/25 08:59 QDAY VERONICA Non-Formulary Medication 100 ea 04/25/25 21:00 Non-Formulary *See Comments* 1 Ea Ea PO 05/25/25 20:59 QDAY VERONICA Ondansetron HCl 4 mg 04/24/25 01:38 04/24/25 05:23 Ondansetron Inj 2 Mg/Ml Inj 2 Ml IVP 05/24/25 01:37 4 mg Q6H PRN Administration NAUSEA OR VOMITING Protocol Plan Patient is a 74-year-old female admitted breakthrough seizures due ot non compliance with medications and acute UTI. Breakthrough seizure In the setting of Poor compliance Electrolyte disturbance - Home medication: Keppra 500 mg twice daily, Aptiom 800 mg daily, Xcopri 100 mg - Patient is known to neurology outpatient clinic and follows up regularly - Spoke to and advise bringing in Aptiom for treatment, new prescription sent - Urine culture shows GNR (Prelim) Recommendations: - Continue treatment with Keppra+ Eslicarbazepine + Xcopri. Had breakthrough seizure due to noncompliance AND exacerbated by urinary tract infection. - Correct electrolytes for optimization, Mg, Na and Phos qAM - Urine culture shows GNR (Prelim), primary team to follow up sensitivity and optimize antibiotic coverage. Anticipate DC in the next 24 hours if seizure free. - Avoid fluoroquinolones in the setting of breakthrough seizures. May continue ceftriaxone for treatment of UTI - Avoid seizure triggers and follow seizure precautions - Ordered STAT physical therapy evaluation tomorrow in preparation for discharge. Other medical problems: Sepsis secondary to UTI Primary hypertension Plan: To be managed as per primary team recommendations Thank you for the consult. Neurology will continue to follow the case with you Plan of care discussed with attending Neurologist Radu Morrell M.D. PGY3 Disclaimer: Minor errors in facilities mechanical design engineer may be present as this note was dictated using voice recognition software. Attending Provider Attestation/Addendum I personally have seen and examined the patient at the bedside and agreed with the resident's findings, assessment and plan of care. Continue with Keppra, eslicarbazepine and Xcopri. Advised her about the importance of compliance to prevent recurrence. This time the breakthrough seizure could have been related to noncompliance and urinary tract infection. Follow-up with me as an outpatient once she gets discharged.
--- NOTE | 2025-04-25 16:17 | ESPR_ITS ---
<Statement entered by Shima Hall MD - 05/09/25 07:52> I reviewed above note and agree with findings and plans. I have also personally examined the patient with medicine team and went over assessment and plan with medical team including internet site designer and resident physician. <Statement entered by Elizabeth Arechiga MD - 04/25/25 17:02> Patient was seen and examined by me personally. I have directly supervised and reviewed documentation by the team resident and agree with its findings with any exceptions or additional findings as below. Plan of care was discussed with the attending, Dr. Hall. Patient continues to have clinical improvement, WBC downtrending. Urine culture showed preliminary GNR, blood cultures negative at 24 hours. EEG read showed abnormal paroxysmal multifocal and generalized spike and wave discharges consistent with seizure disorder. Will plan to discharge tomorrow after final culture results. Elizabeth Arechiga, PGY-3 Documentation for date of: 04/25/25 Subjective Subjective Interval history: No overnight events. Patient was examined at bedside; they appear A&Ox3 and in NAD. Vitals/labs today significant for WBC 12.9->9.7, Hgb 11.3->11.7, potassium 3.4. Physical exam was otherwise benign and unremarkable. Patient continues to seem clinically improved, somewhat less confused (but still not back at baseline), and leukocytosis seems to be resolving. Urine culture showed preliminary GNR, blood cultures negative at 24 hours. Rocephin dose has been decreased from 2 g to 1 g IV qD. 04/23 EEG read showed abnormal paroxysmal multifocal and generalized spike and wave discharges consistent with seizure disorder. Will plan to discharge tomorrow after final culture results. Exam Vital Signs Temp Pulse Resp BP Pulse Ox O2 Del Method 97.0 F 74 20 113/66 95 Room Air 04/25/25 12:00 04/25/25 15:51 04/25/25 12:00 04/25/25 12:00 04/25/25 12:00 04/25/25 12:00 Narrative Exam General: not in acute distress, following limited commands HEENT: NC/AT, mucous membranes moist, bilateral sclera anicteric Cardiovascular: regular rate and rhythm, S1/S2 present, no murmurs appreciated Pulmonary: clear to auscultation bilaterally, no rales/rhonchi/wheezes Abdominal: slight tenderness to palpation of suprapubic area, soft, non- distended, no rebound/guarding, normal bowel sounds present Musculoskeletal: normal ROM, no peripheral edema Skin: warm and dry, intact, no rashes, Neuro: A&O x 2, unable to conduct the rest of exam due to inability to follow directions Objective Labs 04/25/25 05:03 04/25/25 05:03 Labs: Laboratory Results - last 24 hr 04/25/25 05:03 WBC 9.7 RBC 3.59 L Hgb 11.7 L Hct 34.0 L MCV 95 MCH 32.6 MCHC 34.4 RDW Std Deviation 43.9 Plt Count 217 Neut % (Auto) 66 Lymph % (Auto) 24 [place] % (Auto) 9 Eos % (Auto) 1 Baso % (Auto) 0 Neut # (Auto) 6.4 Lymph # (Auto) 2.3 [place] # (Auto) 0.9 H Eos # (Auto) 0.1 Baso # (Auto) 0.0 Immature Gran # (Auto) 0.03 H Absolute Nucleated RBC 0.00 Immature Gran % 0 Nucleated RBC % 0 Sodium 141 Potassium 3.4 Chloride 105 Carbon Dioxide 27.7 Anion Gap 8 BUN 7 L Creatinine 0.8 Estim Creat Clear Calc 61.9 eGFR > 60 BUN/Creatinine Ratio 9 L Glucose 87 Calculated Osmolality 278 Calcium 9.0 Corrected Calcium 9.1 Phosphorus 3.4 Total Bilirubin 0.4 AST 14 ALT 14 Alkaline Phosphatase 68 Total Protein 6.9 Albumin 3.9 Globulin 3.0 Albumin/Globulin Ratio 1.3 Quality Measures Quality Measures sepsis Current suspected stage: sepsis Possible source: genitourinary Blood cultures ordered: yes Antibiotic ordered: Yes Advance care planning discussed with:: patient Assessment & Plan Assessment Current Active Medications: Generic Name Dose Route Start Last Admin Trade Name Freq PRN Reason Stop Dose Admin Acetaminophen 650 mg 04/24/25 01:38 Acetaminophen 325 Mg Tablet PO 05/24/25 01:37 Q6H PRN PAIN OR FEVER > 100.4 Amlodipine Besylate 5 mg 04/24/25 09:00 04/25/25 08:17 Amlodipine Besylate 5 Mg Tablet PO 05/24/25 08:59 5 mg QDAY VERONICA Administration Eslicarbazepine ( 0 ea 04/25/25 16:00 Aptiom) 600 Mg Oral PO 05/25/25 15:59 Tablet DAILY VERONICA Cenobamate (Xcopri) 0 ea 04/25/25 16:00 200 Mg Oral Tablet PO 05/25/25 15:59 DAILY VERONICA Enoxaparin Sodium 40 mg 04/24/25 09:00 04/25/25 08:17 Enoxaparin Sod Inj 40 Mg/0.4 Ml Syringe SC 05/08/25 08:59 40 mg QDAY VERONICA Administration Ceftriaxone Sodium/Dextrose 1 gm in 50 mls @ 100 mls/hr 04/25/25 11:01 04/25/25 11:44 Rocephin/D5w 1gm Iv Premix IV 05/02/25 11:00 100 mls/hr QDAY VERONICA Administration Levetiracetam 500 mg 04/24/25 09:00 04/25/25 08:17 Levetiracetam Inj 100 Mg/Ml Vial 5ml IVP 05/24/25 08:59 500 mg Q12HR VERONICA Administration Lorazepam 2 mg 04/24/25 05:36 Lorazepam 2 Mg/Ml Vial IVP Q5M PRN breakthrough seizure Ondansetron HCl 4 mg 04/24/25 01:38 04/24/25 05:23 Ondansetron Inj 2 Mg/Ml Inj 2 Ml IVP 05/24/25 01:37 4 mg Q6H PRN Administration NAUSEA OR VOMITING Protocol Plan 74-year-old female with a history of seizure disorder, BIBA from home, presents to the ED following a seizure. Patient admitted for sepsis 2/2 to UTI and seizures. #??Sepsis 2/2 #UTI #Lactic acidosis, resolved #Leukocytosis, improving 04/23 WBC 14.4 UA collection was dirty with squamous epithelial 84 however it was turbid and positive for LE and nitrite and WBC 277 LA 2.6, repeat 1.2, end organ damage possibly altered mentation Flu, COVID neg Patient received 1 L LR in the ED Dx: -04/23 UCx ordered, showed GNR growth -04/23 BCx ordered, showed NG24HR Rx: -s/p Rocephin 2 g IV qD [04/23-04/24] -Rocephin 1 g IV qD [04/25--] #Breakthrough seizures, compliant on Keppra, i/s/o sepsis & UTI #Hx of epilepsy on Keppra, Aptiom, and Xcopri Takes home Keppra 500mg BID and Aptiom 800 mg qD Per family compliant with meds, but getting regular seizures Dx: -04/[address] w/o contrast ordered, showed no remarkable findings -04/23 EEG ordered, showed paroxysmal multifocal and generalized spike and wave discharges consistent with seizure disorder -04/23 Keppra level ordered, showed ___ -Swallow evaluation passed, on Diet Dysphagia 2 - Mechanically Altered Rx: -Per Neurology recommendations, continue home Keppra 500 mg BID and Aptiom 800 mg qD -Ativan 2 mg IV q5MIN prn for breakthrough seizures -Seizure precautions -Neuro checks q4HR -Neurology consulted, appreciate recommendations #Acute encephalopathy On 04/24 exam, patient is noted to be A&O x 2, which may be 2/2 seizure-induced post-ictal state and/or UTI with sepsis Dx: -04/[address] and EEG as mentioned in #Breakthrough seizures Rx: -Treat underlying cause (UTI and seizures) #Hypertension Inital BP 176/103 Given Amlodipine 5mg x1, BP repeat 146/74 Rx: -Amlodipine 5 mg PO qD #Electrolyte derangements #Hypokalemia #Hypomagnesemia 04/23 admission potassium 2.7, magnesium 1.6 Rx: -Monitor renal function panel -Replete electrolytes as appropriate Health Maintenance: Diet: Dysphagia 2 - Mechanical Altered GI prophylaxis: Not Indicated DVT prophylaxis: Lovenox 40 mg SC qD Antibiotics: Rocephin 1 g IV qD CODE STATUS: FULL Disposition: TELE Case discussed with my attending Dr. Hall, and senior resident, Dr. Hawk Sutherland, DO PGY-1
[2025-04-26] VITALS: BP 132/76; PULSE 81; RESP 16; TEMP 36.6; O2SAT 96
[2025-04-26 04:00] VITALS: BP 154/78; PULSE 81; RESP 15; TEMP 36.9; O2SAT 98
[2025-04-26 06:00] VITALS: BMI 28.1
[2025-04-26 06:15] LABS: Basophils # (Auto) 0.0 Thou/mm3 (0.0-0.2); Basophils % (Auto) 1 % (0-2.5); Eosinophils # (Auto) 0.1 Thou/mm3 (0.0-0.5); Eosinophils % (Auto) 1 % (0-10); Hematocrit 32.7 % (36.0-46.0); Hemoglobin 11.1 g/dL (12.0-16.0); Immature Granulocytes Auto 0.02 Thou/mm3 (0.00-0.00); Lymphocytes # (Auto) 2.3 Thou/mm3 (1.0-4.8); Lymphocytes % (Auto) 31 % (10-50); Mean Corpuscular HGB Conc 33.9 g/dl (31.0-37.0); Mean Corpuscular Hemoglobin 31.6 pg (25.0-35.0); Mean Corpuscular Volume 93 fL (80-100); Monocytes # (Auto) 0.7 Thou/mm3 (0.0-0.8); Monocytes % (Auto) 10 % (0-12); Neutrophils # (Auto) 4.2 Thou/mm3 (1.8-7.7); Neutrophils % (Auto) 57 % (37-80); Nucleated Red Blood Cell # 0.00 Thou/mm3 (0.00-0.00); Nucleated Red Blood Cell % 0 /100 WBC (0); Platelet Count 218 Thou/mm3 (140-440); RDW Standard Deviation 42.5 fL (36.4-46.3); Red Blood Count 3.51 Miln/mm3 (4.00-5.20); White Blood Count 7.3 Thou/mm3 (3.6-11.0)
[2025-04-26 06:54] LABS: Alanine Aminotransferase 12 U/L (10-49); Albumin, Serum 4.0 gm/dL (3.4-4.8); Albumin/Globulin Ratio 1.7 (1.2-2.2); Alkaline Phosphatase 63 U/L (46-116); Anion Gap 11 (7-16); Aspartate Amino Transferase 16 U/L (0-34); BUN/Creatinine Ratio 13 Ratio (12-20); Bilirubin,Total 0.4 mg/dL (0.3-1.2); Blood Urea Nitrogen 9 mg/dL (9-23); Calcium 8.8 mg/dL (8.3-10.6); Calcium (Corrected) 8.8 mg/dL (8.5-10.1); Carbon Dioxide 25.4 mMol/L (20.0-31.0); Chloride 105 mMol/L (98-107); Creatinine (Component) 0.7 mg/dL (0.6-1.3); Estimated Creatinine Clearance 70.7 mL/min (>60); Globulin 2.4 gm/dL (2.3-3.5); Glucose 109 mg/dL (74-106); Osmolality,Calculated 280 (275-295); Phosphorous 3.6 mg/dL (2.4-5.1); Potassium 3.5 mMol/L (3.4-5.1); Sodium 141 mMol/L (136-145); Total Protein 6.4 gm/dL (5.7-8.2); eGFR > 60 See Note
[2025-04-26 08:00] VITALS: BP 126/75; PULSE 76; PULSE 78; RESP 18; TEMP 36; O2SAT 96
[2025-04-26 08:48] VITALS: BP 126/75; PULSE 76
[2025-04-26] MEDS: cefTRIAXone/D5w 1gm IV premix 1 GM/50 ML BAG IV (08:48)
[2025-04-26] MEDS: levETIRAcetam INJ 100 MG/ML VIAL 5ML 500 MG IVP (08:48)
[2025-04-26] MEDS: ENOXAPARIN SOD INJ 40 MG/0.4 ML SYRINGE SC (08:49)
[2025-04-26 11:50] VITALS: BMI 15.0
[2025-04-26 12:00] VITALS: BP 121/72; PULSE 75; PULSE 81; RESP 19; TEMP 36.1; O2SAT 97
--- NOTE | 2025-04-26 12:09 | PC.SS ---
Update: [employer] informed by PT recommendation for home health with physical therapy.
--- NOTE | 2025-04-26 13:28 | PD.RESPRO ---
Documentation for date of: 04/26/25 Exam Vital Signs Temp Pulse Resp BP Pulse Ox O2 Del Method 96.9 F 75 19 121/72 97 Room Air 04/26/25 12:00 04/26/25 12:00 04/26/25 12:00 04/26/25 12:00 04/26/25 12:00 04/26/25 12:00 Objective Labs 04/26/25 05:10 04/26/25 05:10 Labs: Laboratory Results - last 24 hr 04/26/25 05:10 WBC 7.3 RBC 3.51 L Hgb 11.1 L Hct 32.7 L MCV 93 MCH 31.6 MCHC 33.9 RDW Std Deviation 42.5 Plt Count 218 Neut % (Auto) 57 Lymph % (Auto) 31 [place] % (Auto) 10 Eos % (Auto) 1 Baso % (Auto) 1 Neut # (Auto) 4.2 Lymph # (Auto) 2.3 [place] # (Auto) 0.7 Eos # (Auto) 0.1 Baso # (Auto) 0.0 Immature Gran # (Auto) 0.02 H Absolute Nucleated RBC 0.00 Immature Gran % 0 Nucleated RBC % 0 Sodium 141 Potassium 3.5 Chloride 105 Carbon Dioxide 25.4 Anion Gap 11 BUN 9 Creatinine 0.7 Estim Creat Clear Calc 70.7 eGFR > 60 BUN/Creatinine Ratio 13 Glucose 109 H Calculated Osmolality 280 Calcium 8.8 Corrected Calcium 8.8 Phosphorus 3.6 Total Bilirubin 0.4 AST 16 ALT 12 Alkaline Phosphatase 63 Total Protein 6.4 Albumin 4.0 Globulin 2.4 Albumin/Globulin Ratio 1.7 Quality Measures Quality Measures sepsis Possible source: genitourinary Blood cultures ordered: yes
--- NOTE | 2025-04-26 13:30 | ESDS_ITS ---
<Statement entered by Shima Hall MD - 05/09/25 07:55> I reviewed above note and agree with findings and plans. I have also personally examined the patient with medicine team and went over assessment and plan with medical team including buyer internship and resident physician. <Statement entered by Elizabeth Arechiga MD - 04/27/25 09:22> Patient was seen and examined by me personally. I have reviewed the below documentation by the team resident and agree with its findings with any exceptions as below. Discharge plan was discussed with the attending, Dr. Hall. Elizabeth Arechiga, PGY-3 Planned Discharge Date 04/26/25 DS: Providers Provider Date of admission: 04/24/25 01:33 Primary care physician: Physician No Primary/Family Admitting Provider: Gideon Carter MD Attending Provider on Admission: Shima Hall MD Consults: 04/24/25 01:44 Consult to Neurology / Tele-Neurology Stat Comment: seizures Consulting Provider: Dion Olguin 04/25/25 15:29 Referral Physical Therapy Urgent Comment: in preparation for DC Physician Instructions: Attending Provider on DC: Shima Hall MD Discharging Provider: Kg Sutherland MD DS: Diagnosis Problem List Completed Was Problem List Reviewed/Reconciled?: Yes Hospital Course Hospital Course Hospital course: Summary: Patient is a 74-year-old female with history of seizure disorder was BIBA from home, presents to the ED on 04/24/2025 following a seizure, patient was found to have sepsis secondary to UTI and admitted for further management. Hospital: During patient's hospital course, she was treated with Rocephin IV for her sepsis and UTI. Neurology was consulted and recommended she be continued on her home Keppra and Aptiom (and Ativan IV prn) for her breakthrough seizures likely precipitated in the state of acute infection. Urine cultures eventually grew garrison-sensitive E. coli and blood cultures showed NG48HR. Head CT w/o contrast was negative and EEG was positive for seizure activity. By 04/26, patient was deemed clinically stabilized and discharged. Patient is safe to discharge. Further discharge instructions below. Discharge Recommendations: -Follow up with PCP within 1 week of discharge -Follow up with your Neurologist within 4 weeks of discharge -Continue antibiotics for 5 more days: cephalexin 500 mg twice daily -Continue rest of medications as previously prescribed -Return to the ED or call EMS if symptoms return and/or worsen. #Sepsis 2/2 #E. coli UTI #Lactic acidosis, resolved #Leukocytosis, resolved #Breakthrough seizures, compliant on Keppra, i/s/o sepsis & UTI #Hx of epilepsy on Keppra, Aptiom, and Xcopri #Acute encephalopathy, resolved #Hypertension #Electrolyte derangements #Hypokalemia #Hypomagnesemia Status at Discharge Cognitive/Behavioral Status at Discharge: stable Functional Status at Discharge: independent ambulation Overall Status at Discharge: patient is back to baseline Patient's care plan was discussed with my attending, Dr. Hall, and senior resident, Dr. Arecihga. Kg Sutherland, DO Internal Medicine, PGY-1 Time Spent with Patient Time attestation: Total time spent providing and/or coordinating discharge services: Time spent: Greater than 30 minutes Exam Vital Signs Temp Pulse Resp BP Pulse Ox O2 Del Method 96.9 F 75 19 121/72 97 Room Air 04/26/25 12:00 04/26/25 12:00 04/26/25 12:00 04/26/25 12:00 04/26/25 12:00 04/26/25 12:00 Narrative Exam General: not in acute distress, following limited commands HEENT: NC/AT, mucous membranes moist, bilateral sclera anicteric Cardiovascular: regular rate and rhythm, S1/S2 present, no murmurs appreciated Pulmonary: clear to auscultation bilaterally, no rales/rhonchi/wheezes Abdominal: slight tenderness to palpation of suprapubic area, soft, non- distended, no rebound/guarding, normal bowel sounds present Musculoskeletal: normal ROM, no peripheral edema Skin: warm and dry, intact, no rashes, Neuro: A&O x 2, unable to conduct the rest of exam due to inability to follow directions Discharge Plan Plan Patient Disposition: Home w/HOME HEALTH Patient condition on transfer: Stable Care Plan Goals: Discharge Recommendations: -Follow up with PCP within 1 week of discharge -Follow up with your Neurologist within 4 weeks of discharge -Continue antibiotics for 5 more days: cephalexin 500 mg twice daily -Continue rest of medications as previously prescribed -Return to the ED or call EMS if symptoms return and/or worsen. Prescriptions/Referrals Prescriptions/Med Rec: New cephalexin 500 mg capsule 500 mg PO BID 5 Days Qty: 10 0RF Continued levetiracetam [Keppra] 500 MG tablet 500 mg PO BID Qty: 60 0RF Patient Comments: TAKE ONE TABLET TWICE A DAY FOR SEIZURES gabapentin 600 mg tablet 600 mg PO Q12H Patient Comments: TAKE 1 TABLET BY MOUTH TWICE A DAY eslicarbazepine 600 mg tablet 600 mg PO QDAY Patient Comments: TAKE 1 TABLET BY MOUTH EVERY DAY FOR SEIZURES Xcopri 200 mg tablet 200 mg PO .QD Patient Comments: TAKE 1 TABLET BY MOUTH EVERY DAY FOR SEIZURES Referrals: No Primary/Family,Physician [Primary Care Provider] Dion Olguin MD [Physician, Neurology] - 05/17/25 Referral Note: Breakthrough seizures and UTI hospitalization follow up Patient/Caregiver Discharge Instructions Discharge Activity: activity as tolerated Education Materials: Urinary Tract Infections in Women, Discharge Instructions for Epilepsy, Understanding Sepsis Print Language: Nigerien Discharge Order Discharge Orders: Discharge (Routine); Ordered 04/26/25 Ordered By: Elizabeth Arechiga Quality Discharge Quality Measures VTE prophylaxis and sepsis
--- NOTE | 2025-04-27 07:46 | PC.CM ---
Addendum entered by Evette Aguilar RN 04/27/25 11:57: [facility] accepted patient and they will open patient on 04/30. Original Note: Patient was discharged yesterday and disposition states home with home health. I did not see any home health orders so I contacted Dr. Banerjee to see if they wanted home health. She was going to speak to Dr. Hall.
[2025-04-29 06:34] LABS: Levetiracetam (Keppra)* 67.5 mcg/mL (6.0-46.0)
== END 2025-04-26 12:20 | disposition home health service (06) | DRG 871 ==
LOC: SERX 04-24 00:40 → SERHOLD 04-24 01:56 → S3NX 04-24 06:20
PROVIDERS: Admitting Provider Internal Medicine; Emergency Provider Emergency Medicine; Visit Provider Internal Medicine
DX: A41.51 Sepsis due to Escherichia coli [E. coli] (principal); G93.41 Metabolic encephalopathy; N39.0 Urinary tract infection, site not specified; G40.909 Epilepsy, unspecified, not intractable, without status epilepticus; J40 Bronchitis, not specified as acute or chronic; I10 Essential (primary) hypertension; E83.42 Hypomagnesemia; E87.6 Hypokalemia; F32.A Depression, unspecified; F41.9 Anxiety disorder, unspecified; Z79.899 Other long term (current) drug therapy; Z91.148 Patient's other noncompliance with medication regimen for other reason
CPT/HCPCS: 36415; 51701; 70450; 71045; 80053; 80177; 81001; 82550; 83036; 83605; 83735; 84100; 84443; 85025; 87040; 87077; 87081; 87086; 87186; 87635; 93005; 93225; 95816; 96365; 96366; 96375; 96376; 97162; 99284; J0696; J1650; J1953; J2405; J3475; J3480; J7120; A9270

== ENCOUNTER 2025-06-09 17:32 | Emergency (ER) | payer MEDICARE, MEDICAID, SELFPAY ==
[2025-06-09 17:34] VITALS: PULSE 91; RESP 16; O2SAT 98
[2025-06-09 17:36] VITALS: BP 170/91; PULSE 71; RESP 18; TEMP 36.8; O2SAT 99
--- NOTE | 2025-06-09 18:09 | PD.EDWEAK ---
ED Weakness RME/HPI General Chief complaint: Weakness Stated complaint: WEAKNESS Time Seen by Provider: 06/09/25 18:09 Arrival date/time: 06/09/25 17:32 RME / HPI RME / HPI Narrative: Dr. [facility] Main ED Evaluation: 74yo female with a history of seizure disorder BIBA from home presents to the ED for a chief complaint of bilateral leg weakness x the last couple days. Patient reports associated shakiness to her arms. Of note, patient was admitted to this facility last month for breakthrough seizure and UTI. Patient denies any history of similar symptoms. Denies any recent falls. Denies any chest pain, shortness of breath, or any other associated symptoms. NKA. Related Data Home Medications ?Medication ?Instructions ?Recorded ?Confirmed gabapentin 600 mg tablet 600 mg PO Q12H 04/24/25 04/24/25 cenobamate 200 mg tablet (Xcopri) 200 mg PO .QD 04/26/25 04/26/25 eslicarbazepine 600 mg tablet 600 mg PO QDAY 04/26/25 04/26/25 Previous Rx's ?Medication ?Instructions ?Recorded levetiracetam 500 mg tablet 500 mg PO BID epilepsy #60 tabs 03/14/24 (Keppra) Allergies Allergy/AdvReac Type Severity Reaction Status Date / Time No Known Allergies Allergy Verified 06/09/25 17:38 Review of Systems Review of Systems Systems Reviewed: All systems reviewed, normal except as documented ED Exam Narrative Physical exam: Generally patient is alert and in no obvious distress, heart regular rate and rhythm, lungs clear to auscultation equal bilaterally, abdomen soft bowel sounds present nondistended nontender neurologic exam shows 5/5 muscle strength to all extremities without focal deficit with [place] Coma Scale of 15, skin is warm pale and dry Course Quality Measures none Orders Category Date Time Status EKG (ED ONLY) *Do not use* NOW Care 06/09/25 18:18 Completed In and Out Catheter X1 Care 06/09/25 18:56 Completed EKG (ED Only) Stat Exams 06/09/25 18:18 Draft CBC Stat Lab 06/09/25 18:25 Completed CMP [Comprehensive Metabolic Panel] Stat Lab 06/09/25 18:25 Completed Magnesium Stat Lab 06/09/25 18:25 Completed Troponin I Stat Lab 06/09/25 18:25 Completed UA [Urinalysis] Stat Lab 06/09/25 19:20 Completed Vital Signs Vital signs: Vital Signs Temperature 98.2 F 06/09/25 17:36 Pulse Rate 71 06/09/25 17:36 Respiratory Rate 18 06/09/25 17:36 Blood Pressure 170/91 H 06/09/25 17:36 Pulse Oximetry (%) 99 06/09/25 17:36 Oxygen Delivery Method Room Air 06/09/25 17:36 Weakness [facility] Narrative [facility] Narrative:: Scribe Attestation: 06/09/25 - IJahaira am scribing for and in the presence of Dr. Allen. I reviewed the patient's hospital admission approximately 1 month ago for her electrolyte abnormalities and UTI. Today there is no significant electrolyte abnormality. Potassium and magnesium are normal. Sodium slightly low at 128. Patient's hemoglobin is 10.0. Renal function is normal. Urine is not infected. I interpreted all labs. Patient is stable for discharge. Cardiac workup was unremarkable. EKG showed normal sinus rhythm at a rate of 61 without ischemic change or ectopy. Patient data External records reviewed:: [facility] previous records (Per chart review, patient was admitted here on 04/23/25 for acute UTI.) Clinical information provided by:: patient Social determinants that could affect healthcare access:: none Patient has the following chronic illnesses:: seizure disorder, DM How is presenting disease/condition affected by chronic disease/condition?: uneffected by Evaluation data The following diagnostics were reviewed and interpreted by me:: lab results and EKG tracing(s) Lab and/or radiology exams considered but not ordered:: none Interpretation Summary: See [facility] Medications / Prescriptions Medications or Prescriptions considered but not ordered:: none Medication administrations:: see above, if any Consultations Consultation(s) initiated? (list below): No Diagnosis Weakness Differential Diagnosis: other (See MDM) Most likely diagnosis given after review of the tests above:: see clinical impression below Admission Indicated Admission indicated?: not indicated Admission Request Was there a request for admission?: No Disposition Plan Disposition Plan: Discharge Discharge Attestation Discharge Attestation: The patient and all family members were given an opportunity to ask questions and understood the discharge instructions. Discharge instructions specifically effects, indications for sooner follow up or return to the emergency department, and the expected course of current diagnosis. Patient condition: Stable Discharge Plan Plan Patient Disposition: HOME (Self Care) Prescriptions/Referrals Prescriptions/Med Rec: No Action levetiracetam [Keppra] 500 MG tablet 500 mg PO BID Qty: 60 0RF Patient Comments: TAKE ONE TABLET TWICE A DAY FOR SEIZURES gabapentin 600 mg tablet 600 mg PO Q12H Patient Comments: TAKE 1 TABLET BY MOUTH TWICE A DAY eslicarbazepine 600 mg tablet 600 mg PO QDAY Patient Comments: TAKE 1 TABLET BY MOUTH EVERY DAY FOR SEIZURES Xcopri 200 mg tablet 200 mg PO .QD Patient Comments: TAKE 1 TABLET BY MOUTH EVERY DAY FOR SEIZURES Referrals: Violet Villalobos FNP-C [Primary Care Provider] - In 1 week Problem List Clinical Impression: Weakness Patient/Caregiver Discharge Instructions Education Materials: ED Weakness (Uncertain Cause) Additional Instructions: There is no urine infection or significant electrolyte abnormality tonight. Stay well-hydrated. Continue current medications. Follow-up with your doctor as needed. Print Language: Filipino Stand Alone Forms: [facility] Award Info., Patient Portal Info Letter
--- NOTE | 2025-06-09 18:18 | EKG_ITS ---
[facility] Test Date: 2025-06-09 Pat Name: JAKE IGNACIO Department: Room: - Gender: Female Telephone Worker: : 1950 Requested By: Pk Horta Order Number: [id number] Reading MD: Pk Horta Measurements Intervals Erhard Rate: 61 P: 25 [place]: 177 QRS: 25 QRSD: 90 T: 45 QT: 399 QTc: 404 Interpretive Statements SINUS RHYTHM Compared to ECG 04/23/2025 23:11:23 T-wave abnormality no longer present /[id number]
[2025-06-09 18:41] LABS: Basophils # (Auto) 0.0 Thou/mm3 (0.0-0.2); Basophils % (Auto) 1 % (0-2.5); Eosinophils # (Auto) 0.0 Thou/mm3 (0.0-0.5); Eosinophils % (Auto) 0 % (0-10); Hematocrit 28.5 % (36.0-46.0); Hemoglobin 10.0 g/dL (12.0-16.0); Immature Granulocytes Auto 0.02 Thou/mm3 (0.00-0.00); Lymphocytes # (Auto) 1.5 Thou/mm3 (1.0-4.8); Lymphocytes % (Auto) 31 % (10-50); Mean Corpuscular HGB Conc 35.1 g/dl (31.0-37.0); Mean Corpuscular Hemoglobin 32.3 pg (25.0-35.0); Mean Corpuscular Volume 92 fL (80-100); Monocytes # (Auto) 0.5 Thou/mm3 (0.0-0.8); Monocytes % (Auto) 10 % (0-12); Neutrophils # (Auto) 2.9 Thou/mm3 (1.8-7.7); Neutrophils % (Auto) 58 % (37-80); Nucleated Red Blood Cell # 0.00 Thou/mm3 (0.00-0.00); Nucleated Red Blood Cell % 0 /100 WBC (0); Platelet Count 199 Thou/mm3 (140-440); RDW Standard Deviation 42.4 fL (36.4-46.3); Red Blood Count 3.10 Miln/mm3 (4.00-5.20); White Blood Count 5.0 Thou/mm3 (3.6-11.0)
[2025-06-09 19:00] VITALS: BP 153/64; PULSE 63; RESP 10; TEMP 36.9; O2SAT 100
[2025-06-09 19:04] LABS: Alanine Aminotransferase < 7 U/L (10-49); Albumin, Serum 3.5 gm/dL (3.4-4.8); Albumin/Globulin Ratio 1.1 (1.2-2.2); Alkaline Phosphatase 83 U/L (46-116); Anion Gap 7 (7-16); Aspartate Amino Transferase 17 U/L (0-34); BUN/Creatinine Ratio 8 Ratio (12-20); Bilirubin,Total 0.4 mg/dL (0.3-1.2); Blood Urea Nitrogen 6 mg/dL (9-23); Calcium 8.6 mg/dL (8.3-10.6); Calcium (Corrected) 9.0 mg/dL (8.5-10.1); Carbon Dioxide 24.7 mMol/L (20.0-31.0); Chloride 96 mMol/L (98-107); Creatinine (Component) 0.8 mg/dL (0.6-1.3); Globulin 3.2 gm/dL (2.3-3.5); Glucose 104 mg/dL (74-106); Magnesium 1.8 mg/dL (1.6-2.6); Osmolality,Calculated 254 (275-295); Potassium 3.9 mMol/L (3.4-5.1); Sodium 128 mMol/L (136-145); Total Protein 6.7 gm/dL (5.7-8.2); Troponin I < 0.020 ng/mL (0.0-0.045); eGFR > 60 See Note
[2025-06-09 19:11] VITALS: BMI 29.9
[2025-06-09 19:43] LABS: Collection Type, Urine Catheter
[2025-06-09 19:48] LABS: Amorphous Crystals,Urine Present (Absent); Bacteria,Urine Rare; Bilirubin,Urine Negative (Negative); Blood,Urine Negative (Negative); Clarity,Urine Turbid (Clear/Hazy); Color,Urine Lt-Yellow (Lt Yel-Yel); Glucose, Urine Negative (Negative); Ketones,Urine Negative (Negative); Leukocyte Esterase,Urine Negative (Negative); Nitrite,Urine Positive (Negative); PH,Urine 7.0 (5.0-7.0); Protein,Urine Negative (Neg - Trace); RBC,Urine 2 /hpf (0-3); Specific Gravity,Urine 1.013 (1.001-1.035); Squamous Epithelial Cell,Urine 2 /hpf (0-5); Urobilinogen,Urine Negative mg/dL (0.0-1.0); WBC,Urine 3 /hpf (0-5)
[2025-06-09 20:40] VITALS: BP 187/90; PULSE 81; RESP 18; O2SAT 99
== END 2025-06-09 20:41 | disposition home or self-care (01) ==
PROVIDERS: Emergency Provider Emergency Medicine
DX: R53.1 Weakness (principal)
CPT/HCPCS: 36415; 51701; 80053; 81001; 83735; 84484; 85025; 93005; 99283